=== PATIENT | male | born 1995 | race African-American/Black ===

== ENCOUNTER 2018-09-18 14:55 | Emergency (ER) | payer OTHER ==
[~2018-09-18] VITALS: Ht 165.1 cm; Wt 78.0 kg
--- OUTSIDE RECORDS SUMMARY | ~2018-09-18 | XMS | Encounter Summary ---
Demographics + + + | Address | [address] | | | [place] [address] | + + + | Home Phone | | + + + | Preferred Language | Unknown | + + + | Marital Status | Single | + + + | Mormonism Affiliation | NON | + + + | Race | White | + + + | Ethnic Group | Not or | + + + Author + + + | Organization | Unknown | + + + | Address | Unknown | + + + | Phone | Unavailable | + + + Support + + + + + | Name | Relationship | Address | Phone | + + + + + | Winter Pandya | ECON | [address] | | | | | [place] [address] | | + + + + + Care Team Providers + +------+ + | Care Warpman Name | Role | Phone | + +------+ + PCP | Unavailable | + +------+ + Encounter Details +--------+ + + + + | Date | Type | Department | Care Team | Description | +--------+ + + + + | 07/28/ | Transcribed | | Dictation, Other | Transcribed | | 1999 | | | | | +--------+ + + + + Social History + +-------+ +--------+------+ | Tobacco Use | Types | Packs/Day | Years | Date | | | | | Used | | + +-------+ +--------+------+ | Never Assessed | | | | | + +-------+ +--------+------+ + + + | Sex Assigned at | Date Recorded | | | | + + + | Not on file | | + + + + + + + | Job Start Date | Occupation | Industry | + + + + | Not on file | Not on file | Not on file | + + + + + + + + | Travel History | Travel Start | Travel End | + + + + + + | No recent travel history available. | + + documented as of this encounter Progress Notes Interface, Concierge Receptionist In - 04/18/2006 3:13 AM [facility] OR [facility] and [address] [address] or July 28, 1998 BRIANNE SAUCEDO MD [address] [place] [address] [place] [address] RE: AMOR PANDYA MR# [id number] Saucedo: Amor Pandya was seen in the Neurometabolic Clinic at [facility] on July 28, 1998. As you know, Amor is a lte-zryh-naa boy who is referred for evaluation of developmental delay, hypotonia, and microcephaly. In addition, he has a CT scan which reportedly shows scattered calcifications both periventricular and hemispheric. Review of his history discloses that he was the six-pound, 14-ounce product of a term delivered by forceps. There was a nuchal cord and he went home with mother in two to three days. It is notable that during the latter half of the , mother was around two cats in the household. She does state, however, that she did not clean the vianey litter boxes. For the first two months of life, there did not appear to be any problems. Amor did have some mild eczema. However, by [age] months of age, he was not sitting up and by 10 months of age when he had transferred into your practice, he was noted to be developmental delayed and microcephalic. In May of this year, a CT scan was obtained which was abnormal, showing intracranial calcifications suggesting an intrauterine infection versus tuberous sclerosis. Due to these concerns, he was referred here for further evaluation. While he has never been documented as having any significant seizure disorder, on two occasions he has been noted to "space out", however, without any dramatic motor activity. Developmentally, he is currently capable of sitting and reaching for objects. He does not transfer, crawl, or walk. Medically, other than mild gastroenteritis, he has been a healthy young man. Unfortunately, his CT brain scan did not reach our clinic for our review. Review of the dictation, however, was available. On physical examination, Amor is a well-developed, well-nourished young man in no acute distress. His growth parameters disclose a height of 71 cm with a weight of 8.2 kg and a head circumference of 41.8 cm. His systemic examination is unremarkable other than microcephaly. His skin is clear. I did not note any hypopigmented spots and specifically did not note any mohit-leaf spots when he was examined under a Wood lamp. On neurologic testing, his mental status reveals an awake, alert, inquisitive young man who did not babble and appeared somewhat more immature than his chronologic age. Cranial nerve testing revealed full visual nunn and pupils which are equal, round, and reactive to light. His visual tracking was inconsistent. Facial sensation and strength appeared normal. Hearing appeared intact with an acoustic blink. There was a notable head lag with neck flexor hypotonia. On motor examination, his bulk was normal, however, his tone disclosed proximal hypotonia, most notable in the upper extremities but also across the pelvic girdle. Strength testing appeared intact with appropriate movements against resistance and gravity. There were no abnormal movements noted. Reflexes were bilaterally symmetric and appropriate for age. Impression: Amor Pandya is a qxd-vbqp-wfc boy with a history of microcephaly, global developmental delay, hypotonia, and reported intracranial calcifications. 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 The most likely of the two is cytomegalovirus since that usually causes microcephaly while toxoplasmosis may cause hydrocephalus and macrocephaly. I do not believe he has tuberous sclerosis since there are no cutaneous stigmata for that and there is no significant history for seizures. In order to further pursue this diagnosis, today we are obtaining a urine for CMV culture and we would also like to have him evaluated by our Pediatric Ophthalmology service to examine him for any chorioretinitis to confer a congenital intrauterine infection. Given the two episodes of questionable seizure activity, I also believe it would be prudent to obtain an EEG. If the latter is normal, then I would not pursue any further neurodiagnostic studies until it became more obvious that he was actually having seizures. If we can locate the CT scan, I would be happy to review it and render an opinion. An attempt will be made to try to locate the scan which was probably just misdelivered [facility] to the university. The report, however, is highly suggestive of a congenital infection. Neither Dr. Pedraza nor I feels that there are any signs or symptoms referable to a metabolic disorder and therefore, no metabolic studies have been obtained. Thank you for allowing me to participate in the care of this young man and if I may be of any further assistance, please do not hesitate to call me. Sincerely, Kimani Lazaro M.D. Respiratory Therapy Director, Pediatrics Chief, Division of Pediatric Neurology TK/madeline C: 08/11/1998 ds A M PSTInterface, Concierge Receptionist In - 04/18/2006 3:13 AM PST [address] [address] or [facility] , , Mail Code CE July 29, 1996 Child Development and [facility] RE: Amor Pandya MR# [id number] To Whom It May Concern: Amor Pandya was referred to see us here at the [facility]. The patient is a 69-fteth-yrs boy with developmental delay. He apparently has calcific lesions in his brain, according to his mother. These are of an unknown etiology and he is currently undergoing a work-up at your center. The mother reports that the patient often has a "vacant" look on his face and seems to have a poor startle reflex with visual threats. He also has a wandering eye intermittently. On further questioning, the patient's eye has been noted to last turner occasionally, probably since , and seems to last turner less than 25% of the time. The patient's history is unremarkable. The developmental history is notable for a child who is not yet able to crawl or sit up on his own and who does not feed himself and gets most of his nourishment from milk in a bottle. His growth curves apparently are far behind normal. Mother thinks that he is at about the 5th percentile for height, weight and head circumference. The patient's past medical history is unremarkable other than for the developmental delay and the current work-up he is undergoing. He has no history of surgeries. He has no past ocular history to speak of. Medications include Amoxicillin for an ear infection currently. He has no known drug allergies. Family history does not reveal anything notable. On examination, the patient has vision that is apparently equal in both eyes, as he has central steady and maintained OU. His pupil exam is normal. There is no afferent pupillary defect. His extraocular movements appear to be full in both eyes. 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 His retinoscopic dilated refraction is +3.00 spherical in the right eye and +3.50 +0.50 axis 40 degrees in the left eye. His external exam is within normal limits. Dilated fundus exam shows no lesions of the optic nerve or posterior pull. The optic nerves are not edematous. IMPRESSION: This is a gvx-racn-oxn boy with developmental delay. His eye exam is notable for an intermittent large angle exotropia. There are no retinal lesions noted and no amblyopia suspected. He is reportedly undergoing a work-up for intracerebral calcifications. We have asked the mother to seek follow-up here or in [place] in approximately 3 months time to follow his exotropia and to check for amblyopia. If you have any questions, please do not hesitate to contact me. Thank you for referring this patient to see us. The patient was examined by Dr. Kate Obando, as well as myself. Again, thank you. Sincerely, Esau Gross M.D. Tdocumented in this encounter Plan of Treatment Not on filedocumented as of this encounter Visit Diagnoses Not on filedocumented in this encounter
--- OUTSIDE RECORDS SUMMARY | ~2018-09-18 | XMS | Encounter Summary ---
Demographics + + + | Address | [address] | | | [place] [address] | + + + | Home Phone | | + + + | Preferred Language | Unknown | + + + | Marital Status | Single | + + + | Adventism Affiliation | NON | + + + [...] | | | | | [place] [address] | | + + + + + Care Team Providers + +------+ + | Care Branch Associate Name | Role | Phone | + +------+ + PCP | Unavailable | + +------+ + Encounter Details +--------+ + + + + | Date | Type | Department | Care Team | Description | +--------+ + + + + | 10/05/ | Results | | Other, Faculty | | | 2000 | Only | | [phone] | | +--------+ + + + + [...] + + documented as of this encounter Plan of Treatment Not on filedocumented as of this encounter Procedures + +--------+ + + + | Procedure Name | Priori | Date/Time | Associated Diagnosis | Comments | | | ty | | | | + +--------+ + + + | MRI BRAIN WO/W | Urgent | 10/06/1999 | | Results for this | | [facility]AST [facility] | | 4:35 PM | | procedure are in the | | | | PDT | | results section. | + +--------+ + + + | PHENOBARBITAL, | Urgent | 10/06/1999 | | Results for this | | PLASMA | | 4:40 AM | | procedure are in the | | | | PDT | | results section. | + +--------+ + + + documented in this encounter Results MRI BRAIN WO/W CONTRAST [facility] (10/06/1999 4:35 PM PDT) + + + + + + | Component | Value | Ref Range | Performed | Pathologist | | | | | At | Signature | + + + + + + | MRI BRAIN | Radiologist 1: CARISSA, | | | | | WO/W | ESTEFANY LOTT, | | | | | CONTRAST [facility] | M.D.-Radiologist 2: | | | | | | ESTEFANY FERRER, | | | | | | M.D.BRAIN MAGNETIC | | | | | | [facility], WITH | | | | | | AND WITHOUT | | | | | | CONTRAST: 10/06/99 | | | | | | Dictated 10/07/99 | | | | | | CLINICAL | | | | | | HISTORY: [id number] | | | | | | patient being evaluated | | | | | | inNeuro-metabolic | | | | | | Clinic who has history | | | | | | of microcephaly, | | | | | | developmentaldelay, and | | | | | | hypotonia. By report, | | | | | | outside brain imaging | | | | | | study showsbrain | | | | | | calcifications. Exact | | | | | | results of TORCH titers | | | | | | performed at [facility]that an | | | | | | outside institution are | | | | | | not known. | | | | | | COMPARISON: No prior | | | | | | [facility] | | | | | | [place] | | | | | | Hospitalcomparison | | | | | | studies. | | | | | | TECHNIQUE: Non-contra | | | | | | st sagittal T1, axial | | | | | | and coronal | | | | | | protondensity/fast spin | | | | | | echo T2, and | | | | | | post-gadolinium | | | | | | (Omniscan 2 mL) [id number] | | | | | | and coronal pulse | | | | | | sequences were applied. | | | | | | In addition, axialFLAIR | | | | | | and axial gradient echo | | | | | | pulse sequences were | | | | | | included. | | | | | | FINDINGS: Supratentor | | | | | | ially, there is | | | | | | extensive confluent | | | | | | elevatedabnormal T2 | | | | | | signal in bilateral | | | | | | periventricular, deep, | | | | | | and subcorticalwhite | | | | | | matter (right side more | | | | | | than left), without | | | | | | evidence ofassociated | | | | | | volume loss. A similar | | | | | | patch of T2 | | | | | | hyperintensity is | | | | | | alsonoted at the deep | | | | | | white matter of the | | | | | | right cerebellar | | | | | | hemisphere,peripherally. | | | | | | There are two to three | | | | | | periventricular cystic | | | | | | lesions at the | | | | | | anterioraspects of both | | | | | | temporal lobes, as well | | | | | | as a single cystic | | | | | | lesionassociated with | | | | | | the posterior horn of | | | | | | the left lateral | | | | | | ventricle.There is no | | | | | | hydrocephalus or midline | | | | | | shift. No abnormal | | | | | | parenchymalenhancement | | | | | | is identified. A cavum | | | | | | septum pellucidum et | | | | | | vergae normalvariant is | | | | | | incidentally noted. | | | | | | IMPRESSION: | | | | | | 1. Extensive | | | | | | confluent white matter | | | | | | T2 signal | | | | | | abnormalitiesbilaterally | | | | | | . 2. Periventricular | | | | | | cysts at the anterior | | | | | | aspect of both | | | | | | temporallobes and also | | | | | | associated with the left | | | | | | lateral ventricle | | | | | | atrium. 3. These | | | | | | findings are not | | | | | | specific and most likely | | | | | | suggest ofcongenital | | | | | | inborn error of | | | | | | metabolism | | | | | | (leukodystrophy) | | | | | | and/orinfection (TORCH). | | | | | | Correlation with | | | | | | laboratory analysis is | | | | | | necessary. END OF | | | | | | IMPRESSION: | | | | + + + + + + + + | Specimen | + + | | + + + + + | Narrative | Performed At | + + + | Ordered by PARESH PENNY | | + + + + +---------+ + + | Performing | Address | City/State/Zipcode | Phone Number | | Organization | | | | + +---------+ + + | [facility] | | | | | RADIOLOGY | | | | + +---------+ + + PHENOBARBITAL (10/06/1999 4:40 AM PDT) + +-------+ + + + | Component | Value | Ref Range | Performed | Pathologist | | | | | At | Signature | + +-------+ + + + | PHENOBARBIT | 23.5 | 15.0 - 40.0 | [facility] | | | [place] | | ug/mL | DEPARTMENT | | | | | | OF | | | | | | PATHOLOGY | | + +-------+ + + + + + | Specimen | + + | | + + + + + | Narrative | Performed At | + + + | Ordered by PARESH PENNY | [facility] | | | DEPARTMENT OF | | | PATHOLOGY | + + + + + + + + | Performing | Address | City/State/Zipcode | Phone Number | | Organization | | | | + + + + + | [facility] | [address] | [place], [place] [address] | | | PATHOLOGY | [address] | | | + + + + + | [facility] | [address] | [place] [address] | | | PATHOLOGY | [address] | | | + + + + + documented in this encounter Visit Diagnoses Not on filedocumented in this encounter"
--- OUTSIDE RECORDS SUMMARY | ~2018-09-18 | XMS | Encounter Summary ---
Demographics + + + | Address | [address] | | | [place] [address] | + + + | Home Phone | | + + + | Preferred Language | Unknown | + + + | Marital Status | Single | + + + | Sikhism Affiliation | NON | + + + | Race | White | + + + | Ethnic Group | Not or | + + + Author + + + | Author | [facility] | + + + | Organization | [facility] | + + + | Address | Unknown | + + + | Phone | Unavailable | + + + Support + + + + + | Name | Relationship | Address | Phone | + + + + + | Winter Pandya | ECON | [address] | | | | | [place] [address] | | + + + + + Care Team Providers + +------+ + | Care Trademark Affixer Name | Role | Phone | + +------+ + PCP | Unavailable | + +------+ + Encounter Details +--------+ + + + + | Date | Type | Department | Care Team | Description | +--------+ + + + + | 06/26/ | Office | [facility] | Consult, Cdrc | Progress Note | | 2004 | Visit-Trans | | | | | | cribed | | | | +--------+ + + [...] as of this encounter Progress Notes Interface, Workday Senior Associate In - 11/21/2004 10:56 PM PDTClinic Date: 06/27/2003 CLINIC: [facility] CONNECTIONS DISCIPLINE: ORTHOPEDICS 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 Her left upper is her good hand. She has trouble standing; heel does not touch the ground with the braces, especially the right brace is coming out. She is unable to get her foot flat and she has a left-sided valgus position of the hindfoot. The static examination shows she has a right gastrocnemius of 10 degrees of plantarflexion with the knee extended; the left comes up to neutral. Bilateral hamstring contractures are right 60 and the left 70. She does have bilateral hip flexion contractures but this seems to be dynamic and when we stretch her out she comes out to neutral. We do not have a current hip x-ray so we do not know exactly what the status of her hips appear to be. Her upper extremities demonstrate right hand posturing with flexion and ulnar deviation. The overall plan would be to address the hamstring and right gastrocnemius with consideration for Botox. She would also be a candidate for Botox into the right FCU and pronator. At this point, she is going to be seen in the Botox clinic next week and Dr. Callahan will address these problems and then over time I believe she is going to become a candidate for bilateral hamstring and right gastrocnemius lengthening and possible subtalar stabilization. She is also seen for behavioral issues today. These concerns were discussed. The plan will be to have her seen in the Botox clinic and then will continue working with her speech/language behavior and activities at school. Garry Cannon M.D. MR:[id number] cc: Al Saucedo M.D. [address] [place] [address] Lary Farrell, Director [facility] [address] [place] [id number] signed by Interface, Workday Senior Associate In at 11/21/2004 10:56 PM PDTdocumented in this encounter Plan of Treatment Not on filedocumented as of this encounter Visit Diagnoses Not on filedocumented in this encounter"
--- OUTSIDE RECORDS SUMMARY | ~2018-09-18 | XMS | Encounter Summary ---
Demographics + + + | Address | [address] | | | [place] [address] | + + + | Home Phone | | + + + | Preferred Language | Unknown | + + + | Marital Status | Single | + + + | Episcopalian Affiliation | NON | + + + | Race | White | + + + | Ethnic Group | Not or | + + + Author + + + | Author | [facility] | + + + | Organization | [facility] | + + + | Address | Unknown | + + + | Phone | Unavailable | + + + Support + + + + + | Name | Relationship | Address | Phone | + + + + + | Winter Pandya | ECON | [address] | | | | | [place] [address] | | + + + + + Care Team Providers + +------+ + | Care Aesthetics Instructor Name | Role | Phone | + +------+ + PCP | Unavailable | + +------+ + Encounter Details +--------+ + + + + | Date | Type | Department | Care Team | Description | +--------+ + + + + | 06/01/ | Office | [facility] | Report, Outpatient | Progress Note | | 2001 | Visit-Trans | | Consultation | | | | cribed | | [...] as of this encounter Progress Notes Interface, Palletizer In - 01/07/2006 6:13 AM PDT CLINIC DATE: 06/01/2001 CLINIC NAME: [facility] DISCIPLINE: Social Work Stephanie is 5 years, 6 months of age, and he lives in [place] with his mother, Nadia Pandya. She is a single parent, and Stephanie is her only child. She does work, and she has much family support from grandparents, etc. 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 He has been enrolled in Early Intervention and is now in a preschool program. He receives PT and OT from the [facility]. He is making some nice progress. He also has had a seizure problem, and he is followed medically by Dr. Eunice Wilson, stringed instrument assembler. Eating had been a concern, but this seems to be improving. He is gaining weight appropriately. School attendance had also been a concern, but this year it has been better. We are pleased with the progress Stephanie is making. He seems very comfortable at the school, with the other children, his teacher and his therapists. We also feel he is in a supportive family environment. . JOEL Brody/jocelyne P 6: 13 AM PDTdocumented in this encounter Plan of Treatment Not on filedocumented as of this encounter Visit Diagnoses Not on filedocumented in this encounter"
--- OUTSIDE RECORDS SUMMARY | ~2018-09-18 | XMS | Encounter Summary ---
Demographics + + + | Address | [address] | | | [place] [address] | + + + | Home Phone | | + + + | Preferred Language | Unknown | + + + | Marital Status | Single | + + + | Scientology Affiliation | NON | + + + | Race | White | + + + | Ethnic Group | Not or | + + + Author + + + | Author | [facility] | + + + | Organization | [facility] | + + + | Address | Unknown | + + + | Phone | Unavailable | + + + Support + + + + + | Name | Relationship | Address | Phone | + + + + + | Winter Pandya | ECON | [address] | | | | | [place] [address] | | + + + + + Care Team Providers + +------+ + | Care Fiberline Supervisor Name | Role | Phone | + +------+ + PCP | Unavailable | + +------+ + Encounter Details +--------+ + + + + | Date | Type | Department | Care Team | Description | +--------+ + + + + | 07/28/ | Office | [facility] | Report, Outpatient | Progress Note | | 1998 | Visit-Trans | | Consultation | | [...] as of this encounter Progress Notes Interface, Pilot Plant Technician In - 04/18/2006 3:13 AM PSTCLINIC DATE: 07/28/1998 CLINIC NAME: [facility] DISCIPLINE: SOCIAL WORK Stephanie is just [age] year old. He was referred for this evaluation by Dr. Al Saucedo for concerns regarding significant hypotonia and calcifications on his brain. Stephanie came to this clinic in the company of his mother, Nadia; his maternal step-grandmother, Quin; and his maternal step-aunt, whose name I didn't get. These two women try to be a support system for Nadia. Unfortunately, the aunt lives in [place] and the grandmother lives in [place]. Stephanie and his mother live in [place]. Nadia is a single parent. She is not in contact with Stephanie's father, although she is requesting parental support, and is in the state system being evaluated. It seems that there will have to be a paternity evaluation in this case. Stephanie is Nadia' first child. She is working full-time at the [employer]. When she is at work, Stephanie is at a [employer]. Nadia is very pleased with this baby-sitter whom she describes as somebody with whom she can talk and with whom she can figure out what is going on with Stephanie's development. Nadia' mother lives in the same community but is less of a positive support for her than is the step-grandmother and the step-aunt. Stephanie gets his primary care from Dr. Al Saucedo. He is insured through his mother's work. Stephanie is involved in Early Intervention services. This includes home visitors from the [facility]), Sandra Walker and Perla Ovalle. They visit with Stephanie on either Tuesday or Tuesday when his mother is off of work. This has just started recently and so Nadia is a little unsure how this will work out. In addition, Nadia was expecting to take Stephanie to a toddler group but this has also been not quite established. She did take him one time but found it to be confusing. Stephanie is a cute little jovita. There seems to be some questions about his vision. 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 It seems that he does track at a distance but vision is a concern, both for the adults as well as for the [facility] staff. Additionally, Stephanie is very hypotonic. He is now learning to sit on his own at age 12 months but he is far from pulling to stand. This is his mother's primary concern and she does feel that aside from his gross motor skills, he is developing like any other child. He has had a computed tomography (CT) scan and this does show some calcifications on the brain. His mother was not clear about why he was coming to this particular nor what was the reason for either a neurologist or a program research specialist to be seeing him. Nadia seems to be a fairly simple person who is certainly functional and is taking care of this child but needs a lot of information regarding normal child development and how to manage Stephanie's special needs. Her step-aunt expressed distress at the way Stephanie has been managed. She feels that he was showing signs of developmental problems at about two months of age but that she had trouble convincing Nadia that there was any need for concern. In addition, Nadia has not been consistent in accessing medical care for Stephanie. He missed some of his regular baby checkups and so he is fairly old to be pursuing these questions at this time. Please see doctor's report regarding possible diagnosis for Stephanie. I am uncertain if they will be returning but if they are, we will certainly need to be sharing information regarding his diagnosis, not only with his family but also subsequently with community resources so that they can be supportive to this single mother. Yumiko Valencia L.C.S.W. Social Work DARLINE/keaton P STdocumented in this encounter Plan of Treatment Not on filedocumented as of this encounter Visit Diagnoses Not on filedocumented in this encounter"
--- OUTSIDE RECORDS SUMMARY | ~2018-09-18 | XMS | Encounter Summary ---
Demographics + + + | Address | [address] | | | [place] [address] | + + + | Home Phone | | + + + | Preferred Language | Unknown | + + + | Marital Status | Single | + + + | Uatsdin Affiliation | NON | + + + | Race | White | + + + | Ethnic Group | Not or | + + + Author + + + | Author | [facility] | + + + | Organization | [facility] | + + + | Address | Unknown | + + + | Phone | Unavailable | + + + Support + + + + + | Name | Relationship | Address | Phone | + + + + + | Winter Pandya | ECON | [address] | | | | | [place] [address] | | + + + + + Care Team Providers + +------+ + | Care Paper Making Machine Operator Name | Role | Phone | + +------+ + PCP | Unavailable | + +------+ + Encounter Details +--------+ + + + + | Date | Type | Department | Care Team | Description | +--------+ + + + + | 05/28/ | Office | [facility] | Report, Outpatient | Progress Note | | 1999 | Visit-Trans | | Consultation | | [...] as of this encounter Progress Notes Interface, Assistant Offset Press Operator In - 03/23/2006 3:02 AM PSTCLINIC DATE: 05/28/1999 CLINIC NAME: [facility] DISCIPLINE: SOCIAL WORK Stephanie was brought to the clinic today by his mother, Nadia Pandya, and also the paternal stepmother. Stephanie is 22 months old and the family live in [place], [place]. Mother is a single parent. Stephanie has been diagnosed with microcephaly, hypotonia, and developmental delay. 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 Stephanie has been followed by several programs [facility] the [facility] including the [facility], Pediatric Neurology, and the [facility]. His primary care physician in [place] is Dr. Al Saucedo. Stephanie is the only child born to this young mother. She says Stephanie has no contact with his father at this time. She works full-time at [employer] and works days. She has a childhood teacher provider when she is at work, and she does receive assistance from Social Security. She has an open medical card for Stephanie. She also receives a good deal of support from her father and stepmother, who live in [place], and also from her mother, who lives in [place]. Stephanie is receiving a full [facility] program [facility]. Services are given in the home, and he does not go to an outside toddler group as of yet, although this will soon be available to him. The mother feels quite positive about his current development, and she has the understanding that Stephanie does have cerebral palsy. She had many questions about this diagnosis, and Dr. Saucedo was able to spend some time with her today addressing this issue. It seems this mother is receiving services, both locally and through the [facility]. She also has good support systems in the community, and she has a high risk case manager also working with her on locating resources. We will continue to follow Stephanie in our clinic in [place]. Minerva Subramanian L.C.S.W. Photographic Processor [id number]/[id number] P STdocumented in this encounter Plan of Treatment Not on filedocumented as of this encounter Visit Diagnoses Not on filedocumented in this encounter"
--- OUTSIDE RECORDS SUMMARY | ~2018-09-18 | XMS | Encounter Summary ---
Demographics + + + | Address | [address] | | | [place] [address] | + + + | Home Phone | | + + + | Preferred Language | Unknown | + + + | Marital Status | Single | + + + | Bahai Affiliation | NON | + + + [...] | | | | | [place] [address] | | + + + + + Care Team Providers + +------+ + | Care Tactical Air Defense Controller Name | Role | Phone | + +------+ + PCP | Unavailable | + +------+ + Encounter Details +--------+ + + + + | Date | Type | Department | Care Team | Description | +--------+ + + + + | 10/24/ | Transcribed | | Dictation, Other | [...] as of this encounter Progress Notes Interface, Pulverizing And Sifting Operator In - 04/10/2006 5:[address] [facility] [place] [address] [place], [place] [address] or October 24, 1998 ROXY KNOWLES MD PEDIATRIC NEUROLOGY [address] [place] [address] [place] [address] RE: Stephanie Pandya MR#: [id number] Knowles: You probably remember we saw Stephanie Pandya in the [facility] recently. Stephanie had brain calcifications, microcephaly, developmental delays, and hypotonia. We thought she might have had congenital cytomegalovirus. Her ophthalmologic examination, however, was completely normal, and her urine cytomegalovirus test was normal. I do not think she is likely to have a metabolic disease. You had apparently suggested repeating torch titers. This is a bit outside my area of expertise. Would you or your office be able to contact Dr. Saucedo to either try to obtain results of any torch testing that was done around the time of and/or to suggest specific testing that might be done at this point? Stephanie is now about 15 months old. Finally, you might ask Dr. Saucedo if you could review the head imaging studies that have been done. If, on further review and/or repeat testing, you still do not find evidence of a congenital infection, then perhaps you and I could see Stephanie back in the [facility] to think about other conditions, such as Aicardi Gouttiere syndrome or Fahr disease or lysosomal storage diseases. 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 Thank you for your help with this. Sincerely, Fahad Pedraza M.D. RDS:x12 cc: BRIANNE SAUCEDO MD [address] [place] [address] 3991 BRIANNE SAUCEDO MD [address] [place] [address] 3991 [id number] signed by Interface, Pulverizing And Sifting Operator In at 04/10/2006 5:04 AM PSTdocume nted in this encounter Plan of Treatment Not on filedocumented as of this encounter Visit Diagnoses Not on filedocumented in this encounter"
--- OUTSIDE RECORDS SUMMARY | ~2018-09-18 | XMS | Encounter Summary ---
Demographics + + + | Address | [address] | | | [place] [address] | + + + | Home Phone | | + + + | Preferred Language | Unknown | + + + | Marital Status | Single | + + + | Latter-Day Affiliation | NON | + + + | Race | White | + + + | Ethnic Group | Not or | + + + Author + + + | Author | [facility] | + + + | Organization | [facility] | + + + | Address | Unknown | + + + | Phone | Unavailable | + + + Support + + + + + | Name | Relationship | Address | Phone | + + + + + | Winter Pandya | ECON | [address] | | | | | [place] [address] | | + + + + + Care Team Providers + +------+ + | Care Mill Roll Operator Name | Role | Phone | + +------+ + PCP | Unavailable | + +------+ + Encounter Details +--------+ + + + + | Date | Type | Department | Care Team | Description | +--------+ + + + + | 10/04/ | Procedure - | UNKNOWN DEPARTMENT | Other, Faculty | EEG | | 1999 | | [address] [facility] | [phone] | | | | Transcribed | [facility] | | | | | | [place], [place] | | | | | | [address] | | | +--------+ + + + [...] documented as of this encounter Progress Notes Other, Faculty - 10/05/1999 12:00 AM PDTAssociated Order(s): EEG ROUTINE CLINIC DATE: 10/04 Care Unit: [facility] [id number] Req by: Lance Ingram Test Type: [facility] ROUTINE EEG-[facility] EEG Number: [id number] Pertinent Medications: PHENOBARBITAL, CEFOTAXIME, FENTANYL, TYLENOL INTERPRETATION: Detail: The EEG is recorded primarily with the patient asleep. The background contains some moderate amplitude theta activity that is greater in amplitude over the right hemisphere and much rhythmic beta activity that is most prominent anteriorly and greater in amplitude over the left. There are symmetric sleep spindles and vertex waves. During brief periods of wakefulness there was mostly continuous, low amplitude rhythmic beta activity slightly greater in amplitude over the left anterior electrodes compared with the right. There was no abnormal paroxysmal activity. Impression: Mildly abnormal pediatric EEG with the patient asleep and briefly awake because of mild slowing over the right fronto-temporal region with relative attenuation of beta activity in the same distribution. There were no epileptiform discharges. A prior EEG of 07/29/98 was a normal awake study. Aneudy Davila M.D. documented in this encou nter Plan of Treatment Not on filedocumented as of this encounter Procedures + +--------+ + + + | Procedure Name | Priori | Date/Time | Associated Diagnosis | Comments | | | ty | | | | + +--------+ + + + | EEG ROUTINE | | 10/05/1999 | | Results for this | | | | 12:00 AM | | procedure are in the | | | | PDT | | results section. | + +--------+ + + + documented in this encounter Results EEG ROUTINE (10/05/1999 12:00 AM PDT) + + | Procedure Note | + + | Other, Faculty - 10/05/1999 12:00 AM PDT CLINIC DATE: 10/05/1999 | | | | Care Unit: 8[facility] [id number] Req by: Lance Ignram | | Test Type: PEDS PORT ROUTINE EEG-[facility] EEG Number: [id number] | | Pertinent Medications: PHENOBARBITAL, CEFOTAXIME, FENTANYL, TYLENOL | | | | | | INTERPRETATION: | | | | Detail: The EEG is recorded primarily with the patient asleep. The | | background contains some moderate amplitude theta activity that is greater | | in amplitude over the right hemisphere and much rhythmic beta activity that | | is most prominent anteriorly and greater in amplitude over the left. There | | are symmetric sleep spindles and vertex waves. During brief periods of | | wakefulness there was mostly continuous, low amplitude rhythmic beta | | activity slightly greater in amplitude over the left anterior electrodes | | compared with the right. There was no abnormal paroxysmal activity. | | | | Impression: Mildly abnormal pediatric EEG with the patient asleep and | | briefly awake because of mild slowing over the right fronto-temporal region | | with relative attenuation of beta activity in the same distribution. There | | were no epileptiform discharges. A prior EEG of 07/29/98 was a normal awake | | study. | | | | | | | | | | Aneudy Davila M.D. | | | | | | | | | + + documented in this encounter Visit Diagnoses Not on filedocumented in this encounter"
--- OUTSIDE RECORDS SUMMARY | ~2018-09-18 | XMS | Encounter Summary ---
Demographics + + + | Address | [address] | | | [place] [address] | + + + | Home Phone | | + + + | Preferred Language | Unknown | + + + | Marital Status | Single | + + + | Religion Affiliation | NON | + + + | Race | White | + + + | Ethnic Group | Not or | + + + Author + + + | Author | [facility] | + + + | Organization | [facility] | + + + | Address | Unknown | + + + | Phone | Unavailable | + + + Support + + + + + | Name | Relationship | Address | Phone | + + + + + | Winter Pandya | ECON | [address] | | | | | [place] [address] | | + + + + + Care Team Providers + +------+ + | Care Spanish Lecturer Name | Role | Phone | + +------+ + PCP | Unavailable | + +------+ + Encounter Details +--------+ + + + + | Date | Type | Department | Care Team | Description | +--------+ + + + + | 07/29/ | Procedure - | UNKNOWN DEPARTMENT | Other, Faculty | EEG | | 1998 | | [address] [facility] | [phone] | | | | Transcribed | [facility] | | | | | | [place], [place] | | | | | | [address] | | | +--------+ + + + [...] this encounter Progress Notes Other, Faculty - 07/29/1998 12:00 AM PDTAssociated Order(s): EEG ROUTINE CLINIC DATE: 07/29 [facility]: Dr. Pedraza Test Type: Routine EEG - Peds EEG Number: [id number] Pertinent Medications: Amoxicillin INTERPRETATION: Detail: With the patient awake, there was some intermittent posterior moderate amplitude, symmetric 4-5 Hz activity. Anteriorly there is also mostly moderate to high amplitude symmetric 4-6 Hz activity with some intermixed low amplitude beta activity. Photic stimulation produced a symmetric driving response. There was no focal abnormality or abnormal paroxysmal activity. Impression: Normal pediatric EEG with the patient awake. Aneudy Davila M.D. documented in this encou nter Plan of Treatment Not on filedocumented as of this encounter Procedures + +--------+ + + + | Procedure Name | Priori | Date/Time | Associated Diagnosis | Comments | | | ty | | | | + +--------+ + + + | EEG ROUTINE | | 07/29/1998 | | Results for this | | | | 12:00 AM | | procedure are in the | | | | PDT | | results section. | + +--------+ + + + documented in this encounter Results EEG ROUTINE (07/29/1998 12:00 AM PDT) + + | Procedure Note | + + | Other, Faculty - 07/29/1998 12:00 AM PDT CLINIC DATE: 07/29/1998 | | | | Care Unit: [facility] Req by: Dr. Pedraza | | Test Type: Routine EEG - Peds EEG Number: [id number] | | Pertinent Medications: Amoxicillin | | | | | | INTERPRETATION: | | | | | | | | Detail: With the patient awake, there was some intermittent posterior | | moderate amplitude, symmetric 4-5 Hz activity. Anteriorly there is also | | mostly moderate to high amplitude symmetric 4-6 Hz activity with some | | intermixed low amplitude beta activity. Photic stimulation produced a | | symmetric driving response. There was no focal abnormality or abnormal | | paroxysmal activity. | | | | Impression: Normal pediatric EEG with the patient awake. | | | | | | | | | | Aneudy Davila M.D. | | | | | | | | | + + documented in this encounter Visit Diagnoses Not on filedocumented in this encounter"
--- OUTSIDE RECORDS SUMMARY | ~2018-09-18 | XMS | Encounter Summary ---
Demographics + + + | Address | [address] | | | [place] [address] | + + + | Home Phone | | + + + | Preferred Language | Unknown | + + + | Marital Status | Single | + + + | Mu-Ism Affiliation | NON | + + + | Race | White | + + + | Ethnic Group | Not or | + + + Author + + + | Author | [facility] | + + + | Organization | [facility] | + + + | Address | Unknown | + + + | Phone | Unavailable | + + + Support + + + + + | Name | Relationship | Address | Phone | + + + + + | Winter Pandya | ECON | [address] | | | | | [place] [address] | | + + + + + Care Team Providers + +------+ + | Care Fire Captain Name | Role | Phone | + +------+ + PCP | Unavailable | + +------+ + Encounter Details +--------+ + + + + | Date | Type | Department | Care Team | Description | +--------+ + + + + | 01/01/ | Office | [facility] | Consult, [...] as of this encounter Progress Notes Interface, Manager Storage In - 11/22/2004 8:00 AM PDT [id number] 01/02/2004 [id number] [facility] Clinic Date: 01/02/2004 Clinic Name [facility] Stephanie Pandya is a 8-year 5-month-old with 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 She is walking with a walker. She has had previous Botox. Mother has been concerned about toe walking. She is status post bilateral hamstring, bilateral gastrocnemius, left valgus correction of the foot, which we did this summer. The wounds are clean and dry. There is no sign of infection. There is very good position. In three weeks I would like to obtain and x-ray and have those sent to [place]. We will go ahead and start some physical therapy. I would like to see her back in this clinic in March. Garry Cannon M.D. [id number] documented i n this encounter Plan of Treatment Not on filedocumented as of this encounter Visit Diagnoses Not on filedocumented in this encounter"
--- OUTSIDE RECORDS SUMMARY | ~2018-09-18 | XMS | Encounter Summary ---
Demographics + + + | Address | [address] | | | [place] [address] | + + + | Home Phone | | + + + | Preferred Language | Unknown | + + + | Marital Status | Single | + + + | Holiness Affiliation | NON | + + + [...] | | | | | [place] [address] | | + + + + + Care Team Providers + +------+ + | Care Harp Regulator Name | Role | Phone | + +------+ + PCP | Unavailable | + +------+ + Encounter Details +--------+ + + + + | Date | Type | Department | Care Team | Description | +--------+ + + + + | 10/03/ | Results | | [place] | | | 2000 | Only | | | | +--------+ + + [...] + + | PHENOBARBITAL, | Urgent | 10/05/1999 | | Results for this | | PLASMA | | 4:00 AM | | procedure are in the | | | | PDT | | results section. | + +--------+ + + + | CHEST, 1 VIEW, | Urgent | 10/04/1999 | | Results for this | | PORTABLE | | 11:30 PM | | procedure are in the | | | | PDT | | results section. | + +--------+ + + + documented in this encounter Results PHENOBARBITAL (10/05/1999 4:00 AM PDT) + +-------+ + + + | Component | Value | Ref Range | Performed | Pathologist | | | | | At | Signature | + +-------+ + + + | PHENOBARBIT | 23.7 | 15.0 - 40.0 | [facility] | [...] DEPARTMENT OF | [address] | [place] [address] | | | PATHOLOGY | [address] | | | + + + + + | [facility] | [address] [facility] | [place] [address] | | | PATHOLOGY | [address] | | | + + + + + CHEST, 1 VIEW, PORTABLE (10/04/1999 11:30 PM PDT) + + + + + + | Component | Value | Ref Range | Performed | Pathologist | | | | | At | Signature | + + + + + + | CHEST, 1 | Radiologist 1: TAMI | | | | | SAUL, | MED | | | | | PORTABLE | M.D.CHEST: 10/04/1999 | | | | | | Dictated 10/05/1999 | | | | | | COMPARISON: None. | | | | | | FINDINGS: AP chest | | | | | | radiograph | | | | | | submitted. Endotrache | | | | | | al tube tip isabove the | | | | | | thoracic | | | | | | inlet. Nasogastric | | | | | | tube is coiled in the | | | | | | stomach.The lungs are | | | | | | clear. There is no | | | | | | pneumothorax. Heart | | | | | | size is normal. | | | | | | IMPRESSION: | | | | | | 1. Endotracheal tube | | | | | | tip above the thoracic | | | | | | inlet. Nasogastric | | | | | | tubetip in the stomach. | | | | | | 2. Clear lungs. END | | | | | | OF IMPRESSION: | | | | + + + + + + + + | Specimen | + + | | + + + +---------+ + + | Performing | Address | City/State/Zipcode | Phone Number | | Organization | | | | + +---------+ + + | [facility] DEPARTMENT OF | | | | | RADIOLOGY | | | | + +---------+ + + documented in this encounter Visit Diagnoses Not on filedocumented in this encounter"
--- OUTSIDE RECORDS SUMMARY | ~2018-09-18 | XMS | Encounter Summary ---
Demographics + + + | Address | [address] | | | [place] [address] | + + + | Home Phone | | + + + | Preferred Language | Unknown | + + + | Marital Status | Single | + + + | Orthodoxy Affiliation | NON | + + + | Race | White | + + + | Ethnic Group | Not or | + + + Author + + + | Author | [facility] | + + + | Organization | [facility] | + + + | Address | Unknown | + + + | Phone | Unavailable | + + + Support + + + + + | Name | Relationship | Address | Phone | + + + + + | Winter Pandya | ECON | [address] | | | | | [place] [address] | | + + + + + Care Team Providers + +------+ + | Care Hvac Maintenance Technician Name | Role | Phone | + +------+ + PCP | Unavailable | + +------+ + Encounter Details +--------+ + + + + | Date | Type | Department | Care Team | Description | +--------+ + + + + | 03/14/ | Office | [facility] | Note, Outpatient | Progress Note | | 2000 | Visit-Trans | MEDICINE | Clinic | | | | cribed | | [...] as of this encounter Progress Notes Interface, Wash Oil Cooler Operator In - 01/04/2006 3:01 AM PDTCLINIC DATE: 03/14/2001 OTOLARYNGOLOGY CLINIC HISTORY OF PRESENT ILLNESS: The patient is a 60-year-old gentleman who is referred for evaluation of 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 The patient initially presented in September of 1999 for his left neck mass. Open biopsy of the neck mass was performed by and it was consistent with squamous cell carcinoma. The patient then underwent further evaluation and tonsillectomy and the primary site at left tonsil was found. The patient was treated with concurrent chemotherapy and radiation which he finished in October 1999. He has been doing well with no evidence of recurrence. The patient moved to [place] within the past couple of weeks. Prior to his move, a routine surveillance CT scan of the neck was obtained which was suspicious for a left neck recurrence. The patient thinks that he can feel a new mass in the left side of his neck which is nontender. He denies any dysphagia, odynophagia, or sore throat. He denies weight loss. He does not smoke and never smoked in the past. He drinks 1 to 2 alcohol drinks a day. Of note, the patient was seen by Dr.Eugene Monge at the [facility] at the time of his initial evaluation as well as at the time of evaluation after he completed his chemotherapy and radiation. Once he completed chemotherapy and radiation, there was no residual disease in the neck; therefore, the patient did not undergo neck dissection at that time. PAST MEDICAL HISTORY: Recurrent sinusitis. PAST SURGICAL HISTORY: Neck biopsy and tonsillectomy in July 1999. Ruptured Achilles tendon in June 1970. Broken jaw in October 1963. MEDICATIONS: Toprol 50 mg a day which he takes for "irregular heart beats," and aspirin 81 mg a day. ALLERGIES: IODINE DYE AND POLLEN. SOCIAL HISTORY: The patient does not smoke. He drinks 1 to 2 alcohol drinks a week. He recently moved to [place] with his . 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 They have 2 grown kids, both of them live in [place]. REVIEW OF SYSTEMS: Review of system is done using the questionnaire and it is essentially negative except for xerostomia. FAMILY HISTORY: Positive for history of lung cancer in the mother and adenosarcoma in the patient's father. PHYSICAL EXAMINATION: GENERAL: The patient is a pleasant gentleman in no acute distress, no respiratory distress. VITAL SIGNS: Weight 166 pounds, blood pressure 124/82, and pulse 60. HEENT: Ears: External canals are occluded by cerumen which is removed. Tympanic membranes are clear bilaterally. Nasal exam shows normal septum, mucosa, and turbinates bilaterally. Oral cavity and oropharynx exam shows postsurgical changes after tonsillectomy. There is no evidence of recurrence. There are no lesions on his mucosa. The tongue and uvula are midline. Tongue mobility and sensation are not impaired. NECK: A well-healed incision in the left side of the neck. There is a poorly defined firm mass on the left side of the neck between the great vessels and the larynx. It is firm and nontender. 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 We do not have the access to his scan today which was suspicious for recurrence. We will plan to obtain them from Dr. Smith's office and from the [facility] and hope we will be able to obtain the initial scans as well as the most recent scans, and we will plan to evaluate them with our head and neck radiologist, Dr. Pat Cortes. If it is indeed suspicious for recurrence, we will plan to proceed with either a PET scan or fine-needle biopsy of this neck mass, and if the tissue diagnosis is confirmed, he will need eventual neck dissection. The patient was seen and examined with Dr. Hernandez. Marilee Madrigal M.D. Chu Hernandez M.D. SSD / HS [id number] / [id number] / [id number] / [id number] C: 07/06/2001 cc: Dougie Smith M.D. [address] [place] [address] #LL-C YANA [place] [id number] signed by Interface, Wash Oil Cooler Operator In at 01/04/2006 3:01 AM PDTdoc umented in this encounter Plan of Treatment Not on filedocumented as of this encounter Visit Diagnoses Not on filedocumented in this encounter
--- OUTSIDE RECORDS SUMMARY | ~2018-09-18 | XMS | Clinical Summary ---
Demographics + + + | Address | [address] | | | [place] [address] | + + + | Home Phone | | + + + | Preferred Language | Unknown | + + + | Marital Status | Single | + + + | Mormon Affiliation | NON | + + + | Race | White | + + + | Ethnic Group | Not or | + + + Author + + + | Author | [facility] | + + + | Organization | [facility] | + + + | Address | Unknown | + + + | Phone | Unavailable | + + + Support + + + + + | Name | Relationship | Address | Phone | + + + + + | Winter Pandya | ECON | [address] | | | | | [place] [address] | | + + + + + Care Team Providers + +------+ + | Care Biological Aide Name | Role | Phone | + +------+ + PP | Unavailable | + +------+ + Source Comments MEGHA is fully live on both [facility] and [facility] Allergies Not on File Medications Not on file Active Problems Not on file Social History + +-------+ +--------+------+ | Tobacco [...] recent travel history available. | + + Plan of Treatment + + + + + | Health Maintenance | Due Date | Last Done | Comments | + + + + + | Influenza (Flu) | | | | | vaccination (Season | 9 | | | | Ended) | | | | + + + + + Results Not on filefrom Last 3 Months"
--- OUTSIDE RECORDS SUMMARY | ~2018-09-18 | XMS | Encounter Summary ---
Demographics + + + | Address | [address] | | | [place] [address] | + + + | Home Phone | | + + + | Preferred Language | Unknown | + + + | Marital Status | Single | + + + | Amish Affiliation | NON | + + + | Race | White | + + + | Ethnic Group | Not or | + + + Author + + + | Author | [facility] | + + + | Organization | [facility] | + + + | Address | Unknown | + + + | Phone | Unavailable | + + + Support + + + + + | Name | Relationship | Address | Phone | + + + + + | Winter Pandya | ECON | [address] | | | | | [place] [address] | | + + + + + Care Team Providers + +------+ + | Care Diesel Engine Fitter Name | Role | Phone | + [...] as of this encounter Progress Notes Interface, Wiping Cloth Cutter In - 11/22/2004 8:00 AM PDT [id number] 01/02/2004 [id number] CHEVY CHINCHILLA Clinic Date: 01/02/2004 Clinic Name [facility] Stephanie Pandya is a 8-year 5-month-old [...] in March. Garry Cannon M.D. [id number] documented i n this encounter Plan of Treatment Not on filedocumented as of this encounter Visit Diagnoses Not on filedocumented in this encounter"
--- OUTSIDE RECORDS SUMMARY | ~2018-09-18 | XMS | Encounter Summary ---
Demographics + + + | Address | [address] | | | [place] [address] | + + + | Home Phone | | + + + | Preferred Language | Unknown | + + + | Marital Status | Single | + + + | Methodist Affiliation | NON | + + + [...] | | | | | [place] [address] | | + + + + + Care Team Providers + +------+ + | Care Resident Care Technician Name | Role | Phone | + +------+ + PCP | Unavailable | + +------+ + Encounter Details +--------+ + + + + | Date | Type | Department | Care Team | Description | +--------+ + + + + | 02/19/ | [facility] | | Letter, Clinic | Letters | | 2004 | scribed | | | | +--------+ + + [...] as of this encounter Progress Notes Interface, Scoring Machine Operator In - 11/22/2004 9:03 AM PDT [id number] 02/20/2004 02/20/2004 [id number] CHEVY CHINCHILLA [facility] [address] [place] [address] or February 24, 2004 Елена Najera M.D. [address] [place] [address] RE: AMOR PANDYA MR #: [id number] Dear Dr. Najera: Amor Pandya was seen for neurologic evaluation in the Pediatric Neurology Clinic at [facility] on February 20, 2004. As you know, Amor is a 6-1/2-year-old boy with a history of microcephaly with cerebral calcification, spastic quadriplegia, psychomotor retardation, and a history of 3 seizures. His previous evaluation has included a CT brain scan obtained in May 2001, which disclosed multiple periventricular calcification, felt to be compatible with an intrauterine infection. While these findings were related to mother, it is not clear that she truly understands the nature and causality. As a result of an apparent intrauterine infection, Amor has been developmentally delayed with microcephaly and now has had 3 seizures. The first occurred at the age of 4 which resulted in hospitalization and evaluation reportedly here at [facility]. A second seizure occurred at age 6 during a febrile illness. This episode lasted 5 to 10 minutes and was notable for the eyes rolling upward with tonic stiffening and convulsive activity, right greater than left. After both his first seizure and his second seizure, he was transiently treated with phenobarbital for approximately 1 year. Due to no further seizures, he was taken off the medication. He has recently had a third seizure which was on November 29, 2003, and again, similarly described to the one 2 years ago. His most recent event appeared to have lasted 10 to 15 minutes. He was not started on any medications, although an EEG was obtained locally. He had an EEG here in 1998 which was felt to be within normal limits and then a repeat EEG in 1999 which was mildly abnormal due to some slowing, but no epileptiform discharges were seen. He now presents for further evaluation of his seizures. Review of the past medical history discloses that he was delivered by forceps near term. The details of his and specifically his head circumference at are not available. As noted above, he has always had a developmental disability, and when reviewing his development milestones, he sat at 12 months, crawled at 4 years, and even at the present time, has only 20 to 40 words. He currently is in a special school setting at the first-grade level. Due to his spastic cerebral palsy, he has had multiple tendon releases in his lower extremities as well as strabismus surgery at age 5. He has also received Botox for his spasticity. Review of the family history discloses that there is no history of cerebral palsy, mental retardation, or seizure disorder. He lives with his mother and as noted above, attends special education at the first-grade level. Review of systems is notable for the fact that he is left handed. Mother states that his worst side is his right side. On physical examination, Amor is a disabled-appearing, 6-1/2-year-old boy in no acute distress. His growth parameters disclose a weight of 18.1 kg and a head circumference of 47.5 cm. He was afebrile with normal heart rate and respiratory rate. The systemic examination discloses a microcephalic young man who is wheel-chair bound. He has obvious psychomotor retardation. The systemic examination is notable for findings of cerebral palsy, worse on the right than on the left. He has tight heel cord and arm extension. Mental status examination reveals an awake, alert, and cognitively-impaired young man. Cranial nerve testing discloses strabismus but pupils which are equal, round, and reactive. Face is symmetric, although there is tendency for the mouth to be help opened. Motor examination reveals normal bulk throughout. The tone is diffusely increased, but greater on the right than on the left. There is both spastic tone as well as some dystonic tone. His volitional movements are better on the left. Sensory testing is grossly intact. Cerebellar testing is impaired due to his increased motor tone. Reflexes are brisk but greater on the right than left. Toes are extensive bilaterally. He is nonambulatory. Amor Pandya is a 6-1/2-year-old boy with a history of microcephaly; psychomotor retardation; spastic quadriplegia, greater on the right than the left; and 3 seizures, two of which occurred in the setting of fever, the last of which occurred in an afebrile state. 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 When I discussed this with mother, she did remember someone talking to her about the possibility that she may have come in contact with some infection in cats when she was . 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 I did take the liberty of prescribing the Diastat 5 mg to be used in case of another seizure lasting more than 3 to 5 minutes. If the pattern is for him to have increased numbers of seizures, then I would consider placing him back on daily medication with either phenobarbital or valproic acid. He is at greater risk of having a seizure during febrile illnesses. I discussed this with the mother as well as the pros and cons of daily treatment. It was decided that we would continue to observe him clinically and treat only acute seizures with Diastat. In terms of neurologic followup, I would be happy to have him return for routine care in approximately 6 months to 1 year. If there is a change in his seizure pattern or frequency, I would be happy to reevaluate him sooner. Thanks for allowing to participate in his care, and if I may be of any further assistance, please do not hesitate to contact me. Sincerely, Kimani Lazaro M.D. Chief, Division of Pediatric Neurology Professor, Pediatrics and Neurology SHANDRA / JAMEL [id number] / [id number] / [id number] / documented i n this encounter Plan of Treatment Not on filedocumented as of this encounter Visit Diagnoses Not on filedocumented in this encounter"
--- OUTSIDE RECORDS SUMMARY | ~2018-09-18 | XMS | Encounter Summary ---
Demographics + + + | Address | [address] | | | [place] [address] | + + + | Home Phone | | + + + | Preferred Language | Unknown | + + + | Marital Status | Single | + + + | Anabaptist Affiliation | NON | + + + | Race | White | + + + | Ethnic Group | Not or | + + + Author + + + | Author | [facility] | + + + | Organization | [facility] | + + + | Address | Unknown | + + + | Phone | Unavailable | + + + Support + + + + + | Name | Relationship | Address | Phone | + + + + + | Winter Pandya | ECON | [address] | | | | | [place] [address] | | + + + + + Care Team Providers + +------+ + | Care Railway Equipment Operator Name | Role | Phone | + +------+ + PCP | Unavailable | + +------+ + Encounter Details +--------+ + + + + | Date | Type | Department | Care Team | Description | +--------+ + + + + | 10/04/ | Procedure - | UNKNOWN DEPARTMENT | Other, Faculty | EEG | | 1999 | | [address] | [phone] | | | | Transcribed | [facility] | | | | | | [place], [place] | | | | | | [address] | | | +--------+ + + + [...] EEG ROUTINE CLINIC DATE: 10/04 Care Unit: 8[facility] [id number] Req by: Lance Ingram Test Type: [facility] ROUTINE EEG-[facility] EEG Number: [id number] Pertinent Medications: PHENOBARBITAL, [...] | | | | Care Unit: [id number] Req by: Lance Ingram | | Test Type: PEDS PORT ROUTINE EEG-[facility] EEG Number: [id number] | | Pertinent [...]
--- OUTSIDE RECORDS SUMMARY | ~2018-09-18 | XMS | Encounter Summary ---
Demographics + + + | Address | [address] | | | [place] [address] | + + + | Home Phone | | + + + | Preferred Language | Unknown | + + + | Marital Status | Single | + + + | Protestant Affiliation | NON | + + + | Race | White | + + + | Ethnic Group | Not or | + + + Author + + + | Author | [facility] | + + + | Organization | [facility] | + + + | Address | Unknown | + + + | Phone | Unavailable | + + + Support + + + + + | Name | Relationship | Address | Phone | + + + + + | Winter Pandya | ECON | [address] | | | | | [place] [address] | | + + + + + Care Team Providers + +------+ + | Care Die Forger Name | Role | Phone | + +------+ + PCP | Unavailable | + +------+ + Encounter Details +--------+ + + + + | Date | Type | Department | Care Team | Description | +--------+ + + + + | 07/28/ | Office | [facility] | Note, Outpatient | Progress Note | | 1998 | Visit-Trans | MEDICINE | Clinic | [...] as of this encounter Progress Notes Interface, Magazine Publisher In - 04/18/2006 3:13 AM PSTCLINIC DATE: 07/28/1998 [facility] HISTORY OF PRESENT ILLNESS: This is a 3-year-old child referred by Dr. Brianne Saucedo in [place], [place] for concerns of hypotonia, developmental delay, and a recent CT scan revealing diffuse calcification. Stephanie's mother received care starting at five months in [place]. She reports having a chlamydial infection treated during , as well as a rubella non-immune status. She denies any significant fevers or infections, although she did have a low-grade fever the week prior to Stephanie's delivery. He was born at 40 weeks by last menstrual period, 34 weeks by sonogram. He was a forceps delivery with nuchal cord x one. There was no remarkable resuscitation. His weight was 6 lb. 14 oz., and he was discharged on bottle feeding of Enfamil at 3 days of life. He was circumcised at 1 week of age without complication, prior to moving to [place]. The mother does relate having several indoor kittens during the last three months of , but the litter was changed by a roommate. Stephanie had his normal 2-month well-child check which was remarkable for mild eczema. He received vaccinations. There were no developmental concerns expressed. At 4 months of age he was again seen for well-child check with no developmental concerns noted. He apparently gained weight, although these previous points are not available to us. He had no formal well-child check between 4 months and 9 months, but his mother reports family concerns about his development in that he was not sitting up at 6 months and did not start rolling until 8 months of age. At his 9-month well-child check he was noted to be unable to sit unassisted. He had microcephaly. He was noted to be able to hold his rattle. There were no maternal concerns for vision or hearing. At home his mother describes prominent startle response but has noticed no overt repetitive movements. On at least two occasions both the visiting nurse and other family members have noted that he will stare unresponsively for about 40 seconds at a time. REVIEW OF SYSTEMS: Notable for recent recovery from a presumed viral gastroenteritis. He is formula fed without difficulty. He has not advanced to solid diet. There has been no choking or regurgitation noted. He has one to two bowel movements per day. He is noted to have a soft cry. He has had no other major medical illnesses. MEDICATIONS: He is not currently on any medications. FAMILY HISTORY: Significant for two maternal great-uncles with mental retardation, maternal grandmother with bipolar disorder. There have been no miscarriages nor ship fastener demise. The father's history is unknown. SOCIAL HISTORY: Stephanie lives with his mother. The father of the child is not involved. IMMUNIZATIONS: Current. He has never received oral polio vaccine. He needs his 12-month vaccine. PHYSICAL EXAMINATION: Vital signs: Weight 8.2 kg (less than 5th percentile). Length 71 cm (less than 5th percentile). Head circumference 41.8 cm (much less than the 5th percentile). Weight for length is at the 80th percentile. Generally he is a quiet baby in no distress. He is sitting with assistance in his mother's arms and occasionally has a spontaneous social smile. He is microcephalic by measurement but does not appear small in relationship to the rest of his body. Atraumatic. Non-dysmorphic. Pupils are equal and reactive. He is well-hydrated. There is no obvious funduscopic abnormality. Tympanic membranes are clear with a small amount of fluid bilaterally. Nares are clear without discharge. Oropharynx is moist and pink without lesion. Neck is supple without adenopathy. Cardiovascular: Regular rate without murmur or gallop. Lungs are clear with easy respiratory effort. Abdomen is soft, nontender, nondistended. There is no hepatosplenomegaly or mass. Extremities are warm and well-perfused. Dermatologically there are very small areas of depigmentation along his left lateral thorax. These do not light up with Wood lamp and are not deemed to be significant of genetic disease. Neurologic exam: Muscle bulk appears appropriate. He is somewhat hypertonic symmetrically in the lower extremities, but hypotonic in the upper extremities. He slips through on a vertical suspension test and sags on a horizontal suspension test. He is unable to sit unassisted for more than two or three seconds. His patellar reflexes are 2+ and symmetric, as are his Achilles reflexes. Toes are equivocal. There is no clonus. Bicipital tendon reflexes are 1+ and symmetric. There is no evidence for spasticity. He is able to lift his hands up to horizontal bilaterally. He does grasp onto objects placed in front of him. He is not observed to roll at this visit. He does seem to track. His face appears symmetric. He does protrude his tongue. He is moving all of his extremities symmetrically. IMAGING: We have report of a CT scan that was done in [place] but it is not available for our review at this time. This is described as multiple small calcifications scattered throughout both cerebral hemispheres and bilateral patchy decreased density of the white matter. IMPRESSION AND RECOMMENDATIONS: We do agree that the history, to include the microcephaly as well as the diffuse calcifications, is very consistent with a TORCH infection. My most likely thought at this point would be congenital cytomegalovirus. The description of the history is highly suggestive of a static insult to the brain and nothing that is progressive in nature or suggestive at all of metabolic disease. We would make the following recommendations for further diagnostic testin. Obtain urine for cytomegalovirus isolation. 2. Have an ophthalmologic evaluation for changes consistent with chorioretinitis which may be seen with cytomegalovirus. 3. Arrange for an electroencephalogram to delineate whether these staring spells may represent seizure activity. We have sent the urine and are obtaining an ophthalmologic exam today, 07/28/98. As the mother is staying in the area for the next several days we will attempt to coordinate an EEG at this same period of time. We do think that it is very unlikely that this is a progressive disorder and agree that his connection with Early Intervention or EST will be appropriate in following his developmental milestones and arranging for physical and occupational therapy as is indicated. As we receive results from the ophthalmologic testing and cytomegalovirus assays, we will contact Dr. Saucedo with the results. We would also like him to arrange for the previously performed CT scan to be sent for evaluation. At this time, pending that, there is no indication for further brain imaging. Osito Torres Jr., M.D. Resident, Pediatrics Fahad Pedraza M.D. PEB/scnicole cc: BRIANNE SAUCEDO MD [address] [place] [id number] 3 :13 AM PSTdocumented in this encounter Plan of Treatment Not on filedocumented as of this encounter Visit Diagnoses Not on filedocumented in this encounter"
--- OUTSIDE RECORDS SUMMARY | ~2018-09-18 | XMS | Encounter Summary ---
Demographics + + + | Address | [address] | | | [place] [address] | + + + | Home Phone | | + + + | Preferred Language | Unknown | + + + | Marital Status | Single | + + + | Voodoo Affiliation | NON | + + + [...] | | | | | [place] [address] | | + + + + + Care Team Providers + +------+ + | Care Flat Clothier Name | Role | Phone | + [...] as of this encounter Progress Notes Interface, Supervising Librarian In - 04/18/2006 3:13 AM [facility] [place] [facility] and [address] [address] or July 28, 1998 BRIANNE SAUCEDO MD [address] [place] [address] [place] [address] RE: AMOR PANDYA MR# [id number] Saucedo: Amor Pandya was seen in the Neurometabolic Clinic at [facility] on July 28, 1998. As you know, Amor is a vgx-znzd-kbq boy who is referred for evaluation of [...] for age. Impression: Amor Pandya is a llv-tsab-gef boy with a history of microcephaly, global [...] to call me. Sincerely, Kimani Lazaro M.D. Metal Fence Erector, Pediatrics Chief, Division of Pediatric Neurology TK/madeline C: 08/11/1998 ds A M PSTInterface, Supervising Librarian In - 04/18/2006 3:13 AM PST [address] [address] or [facility] , , Mail Code CE July 29, 1998 [facility] and [facility] RE: Amor Pandya MR# [id number] To Whom It May Concern: Amor Pandya was referred to see us here at the [facility]. The patient is a 60-ckfxt-kev boy with developmental delay. He apparently has [...] the patient's eye has been noted to jewel bearing turner occasionally, probably since , and seems to jewel bearing turner less than 25% of the time. [...] are not edematous. IMPRESSION: This is a sem-szhq-zjy boy with developmental delay. His eye exam is notable for an intermittent large angle exotropia. There are no retinal lesions noted and no amblyopia suspected. He is reportedly undergoing a work-up for intracerebral calcifications. We have asked the mother to seek follow-up here or in [place] in approximately 3 months time to follow [...]
--- OUTSIDE RECORDS SUMMARY | ~2018-09-18 | XMS | Encounter Summary ---
Demographics + + + | Address | [address] | | | [place] [address] | + + + | Home Phone | | + + + | Preferred Language | Unknown | + + + | Marital Status | Single | + + + | Restorationist Affiliation | NON | + + + | Race | White | + + + | Ethnic Group | Not or | + + + Author + + + | Author | [facility] | + + + | Organization | [facility] | + + + | Address | Unknown | + + + | Phone | Unavailable | + + + Support + + + + + | Name | Relationship | Address | Phone | + + + + + | Winter Pandya | ECON | [address] | | | | | [place] [address] | | + + + + + Care Team Providers + +------+ + | Care Gearman Name | Role | Phone | + +------+ + PCP | Unavailable | + +------+ + Encounter Details +--------+ + + + + | Date | Type | Department | Care Team | Description | +--------+ + + + + | 07/29/ | Procedure - | UNKNOWN DEPARTMENT | Other, Faculty | EEG | | 1998 | | [address] [facility] | [phone] | | | | Transcribed | [facility] | | | | | | [place], [place] | | | | | | [address] | | | +--------+ + + + [...] EEG ROUTINE CLINIC DATE: 07/29 [facility]: Dr. Pedraza Test Type: Routine [...] 07/29/1998 | | | | Care Unit: [facility]-Metabolic Req by: Dr. Pedraza | | [...]
--- OUTSIDE RECORDS SUMMARY | ~2018-09-18 | XMS | Encounter Summary ---
Demographics + + + | Address | [address] | | | [place] [address] | + + + | Home Phone | | + + + | Preferred Language | Unknown | + + + | Marital Status | Single | + + + | Spiritism Affiliation | NON | + + + | Race | White | + + + | Ethnic Group | Not or | + + + Author + + + | Author | [facility] | + + + | Organization | [facility] | + + + | Address | Unknown | + + + | Phone | Unavailable | + + + Support + + + + + | Name | Relationship | Address | Phone | + + + + + | Winter Pandya | ECON | [address] | | | | | [place] [address] | | + + + + + Care Team Providers + +------+ + | Care Agricultural Crop Farm Manager Name | Role | Phone | + +------+ + PCP | Unavailable | + +------+ + Encounter Details +--------+ + + + + | Date | Type | Department | Care Team | Description | +--------+ + + + + | 07/28/ | Results | Registration [id number] | | | | 1998 | Only | Kishor Cook | | | | | | [facility] Mailcode: | | | | | | [address] [place], [place] | | | | | | [address] | | | | | | [phone] | | | +--------+ + + + [...] | + +--------+ + + + | IMMUNOLOGY TESTS 6 | Routin | 07/28/1998 | | Results for this | | | e | 9:58 PM | | procedure are in the | | | | PDT | | results section. | + +--------+ + + + | MICROBIOLOGY TESTS 1 | Routin | 07/28/1998 | | Results for this | | | e | 9:58 PM | | procedure are in the | | | | PDT | | results section. | + +--------+ + + + documented in this encounter Results IMMUNOLOGY TESTS 6 (07/28/1998 9:58 PM PDT) + + + + + + | Component | Value | Ref Range | Performed | Pathologist | | | | | At | Signature | + + + + + + | [facility] | NEGATIVE | | | | | ASSIST | | | | | + + + + + + + + | Specimen | + + | | + + + + + + + | Performing | Address | City/State/Zipcode | Phone Number | | Organization | | | | + + + + + | [facility] | [address] | [place] [address] | | | PATHOLOGY | [address] | | | + + + + + MICROBIOLOGY TESTS 1 (07/28/1998 9:58 PM PDT) + + + + + + | Component | Value | Ref Range | Performed | Pathologist | | | | | At | Signature | + + + + + + | CULTURE | Test Ordered | | | | | RESULT | VIRAL CULTURE, | | | | | | CMVOrdering | | | | | | Loc REFSpec | | | | | | Set Up Date 07/28Spec | | | | | | Set Up Time | | | | | | 21:58Specimen | | | | | | Type URINERep | | | | | | ort | | | | | | Status FINALP | | | | | | relim | | | | | | Result NO | | | | | | VIRUS ISOLATED TO | | | | | | DATECulture | | | | | | Result NO VIRUS | | | | | | ISOLATEDDate Of Final | | | | | | Re [id number] | | | | + + + + + + + + | Specimen | + + | | + + + + + + + | Performing | Address | City/State/Zipcode | Phone Number | | Organization | | | | + + + + + | [facility] | [address] | [place] [address] | | | PATHOLOGY | [address] | | | + + + + + documented in this encounter Visit Diagnoses Not on filedocumented in this encounter"
--- OUTSIDE RECORDS SUMMARY | ~2018-09-18 | XMS | Encounter Summary ---
Demographics + + + | Address | [address] | | | [place] [address] | + + + | Home Phone | | + + + | Preferred Language | Unknown | + + + | Marital Status | Single | + + + | Sikh Affiliation | NON | + + + | Race | White | + + + | Ethnic Group | Not or | + + + Author + + + | Author | [facility] | + + + | Organization | [facility] | + + + | Address | Unknown | + + + | Phone | Unavailable | + + + Support + + + + + | Name | Relationship | Address | Phone | + + + + + | Winter Pandya | ECON | [address] | | | | | [place] [address] | | + + + + + Care Team Providers + +------+ + | Care Button Spindler Name | Role | Phone | + [...] as of this encounter Progress Notes Interface, Tea Plantation Worker In - 04/18/2006 3:13 AM PSTCLINIC DATE: 07/28/1998 [facility] CLINIC HISTORY OF PRESENT ILLNESS: This is a 3-year-old child referred by Dr. Brianne Saucedo in [place], [place] for concerns of hypotonia, developmental delay, and a recent CT scan revealing diffuse calcification. Stephanie's mother received care starting at five months in [place]. She reports having a chlamydial infection treated [...] age without complication, prior to moving to [place]. The mother does relate having several indoor [...] disorder. There have been no miscarriages nor psychometrist demise. The father's history is unknown. SOCIAL [...] a CT scan that was done in [place] but it is not available for our [...] Resident, Pediatrics Fahad Pedraza M.D. PEB/scnicole cc: BIRANNE SAUCEDO MD [address] [place] [phone] 3 :13 AM PSTdocumented in this encounter Plan of Treatment Not on filedocumented as of this encounter Visit Diagnoses Not on filedocumented in this encounter"
--- OUTSIDE RECORDS SUMMARY | ~2018-09-18 | XMS | Encounter Summary ---
Demographics + + + | Address | [address] | | | [place] [address] | + + + | Home Phone [...] Author + + + | Author | [facility] | + + + | Organization | [facility] | + + + | Address | Unknown | + + + | Phone | Unavailable | + + + Support + + + + + | Name | Relationship | Address | Phone | + + + + + | Winter Pandya | ECON | [address] | | | | | [place] [address] | | + + + + + Care Team Providers + +------+ + | Care Accountant Assistant Name | Role | Phone | + [...] as of this encounter Progress Notes Interface, Math Professor In - 04/18/2006 3:13 AM PSTCLINIC DATE: [...] for Nadia. Unfortunately, the aunt lives in [place] and the grandmother lives in [place]. Stephanie and his mother live in [place]. Nadia is a single parent. She is not in contact with Stephanie's father, although she is requesting parental support, and is in the state system being evaluated. It seems that there will have to be a paternity evaluation in this case. Stephanie is Nadia' first child. She is working full-time at the [employer]. When she is at work, Stephanie is at a baby-sitControlus. Nadia is very pleased with this baby-sitter [...] services. This includes home visitors from the [facility]), Sandra Walker and Perla Ovalle. They visit [...] reason for either a neurologist or a web operations specialist to be seeing him. Nadia seems [...]
--- OUTSIDE RECORDS SUMMARY | ~2018-09-18 | XMS | Encounter Summary ---
Demographics + + + | Address | [address] | | | [place] [address] | + + + | Home Phone | | + + + | Preferred Language | Unknown | + + + | Marital Status | Single | + + + | Quaker Affiliation | NON | + + + | Race | White | + + + | Ethnic Group | Not or | + + + Author + + + | Author | [facility] | + + + | Organization | [facility] | + + + | Address | Unknown | + + + | Phone | Unavailable | + + + Support + + + + + | Name | Relationship | Address | Phone | + + + + + | Winter Pandya | ECON | [address] | | | | | [place] [address] | | + + + + + Care Team Providers + +------+ + | Care Residential Case Manager Name | Role | Phone | [...] as of this encounter Progress Notes Interface, Visual Artist In - 01/07/2006 6:13 AM PDT CLINIC DATE: 06/01/2001 CLINIC NAME: [facility] DISCIPLINE: Social Work Stephanie is 5 years, 6 months of age, and he lives in [place] with his mother, Nadia Pandya. She is a single parent, and Stephanie is her only child. She does work, and she has much family support from grandparents, etc. 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 He has been enrolled in Early Intervention and is now in a preschool program. He receives PT and OT from the [facility]. He is making some nice progress. He also has had a seizure problem, and he is followed medically by Dr. Eunice Wilson, automotive sales representative. Eating had been a concern, but this [...]
--- OUTSIDE RECORDS SUMMARY | ~2018-09-18 | XMS | Encounter Summary ---
Demographics + + + | Address | [address] | | | [place] [address] | + + + | Home Phone | | + + + | Preferred Language | Unknown | + + + | Marital Status | Single | + + + | Jew Affiliation | NON | + + + [...] | | | | | [place] [address] | | + + + + + Care Team Providers + +------+ + | Care Wastewater Plant Operator Name | Role | Phone | [...] DEPARTMENT OF | [address] | [place] [address] | | | PATHOLOGY | [address] | | | + + + + + | [facility] | [address] [facility] | [place] [address] | | | PATHOLOGY | [address] [...] | | + +---------+ + + | [facility] DEPARTMENT OF | | | | | RADIOLOGY | | | | + +---------+ + + documented in this encounter Visit Diagnoses Not on filedocumented in this encounter"
--- OUTSIDE RECORDS SUMMARY | ~2018-09-18 | XMS | Encounter Summary ---
Demographics + + + | Address | [address] | | | [place] [address] | + + + | Home Phone | | + + + | Preferred Language | Unknown | + + + | Marital Status | Single | + + + | Congregation Affiliation | NON | + + + [...] | | | | | [place] [address] | | + + + + + Care Team Providers + +------+ + | Care Manufacturing Test Technician Name | Role | Phone | + +------+ + PCP | Unavailable | + +------+ + Encounter Details +--------+ + + + + | Date | Type | Department | Care Team | Description | +--------+ + + + + | 06/03/ | [facility] | | Letter, Clinic | Letters | | 2006 | scribed | | | | +--------+ [...] as of this encounter Progress Notes Interface, Balloon Dipper In - 06/06/2005 2:03 AM PST [id number] 06/03/2005 06/03/2005 [id number]A [facility] [address] [place] [address] or June 04, 2005 Al Saucedo M.D. [address] [place] [address] RE: AMOR PANDYA MR #: [id number] Dear Dr. Saucedo: Amor Pandya was seen for Neurologic followup in the Pediatric Neurology Clinic at [facility] on June 03, 2005. 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 He was last seen by me in January 2004, and at that time it was elected to clinically follow his seizures since he had only had 3 thus far. He was given a prescription for Diastat 5 mg rectal gel, and mother was told that should his seizures become more prominent then he may need to be placed on chronic anticonvulsant therapy. Since that last visit, Amor has actually done well. He has had 2 more seizures; one which occurred in December 2004, and the other either in January 2005 or February 2005. Both seizures were described as generalized major motor events lasting approximately 5 minutes or less. On neither event did the family administer Diastat since they did not have any at hand. They did say that they have been great trouble trying to locate and obtain Diastat in the [place] area. Other than these 2 further episodes, however, he has done well with no significant problems even suggestive of seizures. Amor's major problems have been his psychomotor retardation and cerebral palsy which is greater on his right side. He does have some bracing which he wears on his right arm. He is not easily ambulatory but will use a walker to some degree and will walk with assistance. The family is hoping to have him seen at [facility] where issues concerning his cerebral palsy can be addressed. He returns today for routine followup and maintenance of continuity in terms of his seizure management. Further review of systems is noncontributory. On physical examination, Amor is a disabled-appearing, small, nearly 10-year-old boy in no acute distress. His growth parameters disclose a height of 116 cm with a weight of 22 kg and a head circumference of 46 cm. He is afebrile with normal heart rate and respiratory rate. His systemic examination discloses a microcephalic young man who is ambulatory only with assistance. He has obvious psychomotor retardation. His notable findings are his microcephaly and cerebral palsy which is obviously worse on the right than the left. He has tight heel cords and difficult arm extension on the right. Cranial nerve testing discloses strabismus, but his pupils are equal, round, and reactive. His face is symmetric, although there is a tendency for his mouth to remain open. Motor examination discloses somewhat thin bulk with increased tone greater on the right than the left. There is spastic tone as well as dystonic posturing. His volitional movements are performed better on the left. Reflexes are brisk, again greater on the right than the left. His toes are extensor bilaterally. Amor Pandya is a nearly 10-year-old boy with a history of microcephaly, psychomotor retardation, spastic quadriplegia greater on the right than the left, and a mild seizure disorder. At this time, it appears that he has only had 5 seizures in his lifetime; 2 occurring in the fall of 2004 and the previous events in 2003. At this time, the family is not particularly motivated to place him on daily medication. They are content with continuing to clinically observe him. I believe this is a reasonable approach given the fact that he has had only a few seizures all lasting less than 3 minutes. The family does, however, need Diastat rectal gel, and today I gave them 2 syringes of 15 mg Diastat rectal gel and instructed them to administer approximately 10 mg after seizures lasting greater than 3 to 5 minutes. I did not give them a prescription since they felt that it would be difficult to fill that in [place], and more likely these two syringes should last for at least the next 6 months. On his next routine clinical visit with you, you could may be further explore their difficulty in trying to obtain Diastat. If he does begin to have more seizures, I do believe he will need to be placed on daily medication. If he remains stable, I would like to re-evaluate him in 1 year. For his cerebral palsy, he will be evaluated through [facility]. Thank you for allowing me to participate in the care of this young man. If I may be of any further assistance, please do not hesitate to contact me. Sincerely, Kimani Lazaro M.D. Chief, Division of Pediatric Neurology Professor, Pediatrics and Neurology SHANDRA / JAMEL [id number] / [id number] / [id number] / documented i n this encounter Plan of Treatment Not on filedocumented as of this encounter Visit Diagnoses Not on filedocumented in this encounter"
--- OUTSIDE RECORDS SUMMARY | ~2018-09-18 | XMS | Encounter Summary ---
Demographics + + + | Address | [address] | | | [place] [address] | + + + | Home Phone | | + + + | Preferred Language | Unknown | + + + | Marital Status | Single | + + + | Evangelical Affiliation | NON | + + + | Race | White | + + + | Ethnic Group | Not or | + + + Author + + + | Author | [facility] | + + + | Organization | [facility] | + + + | Address | Unknown | + + + | Phone | Unavailable | + + + Support + + + + + | Name | Relationship | Address | Phone | + + + + + | Winter Pandya | ECON | [address] | | | | | [place] [address] | | + + + + + Care Team Providers + +------+ + | Care Senior Qc Technician Name | Role | Phone | [...] Cook | | | | | | [facility] Mailcode: | | | | | | [address] [place], [place] | | | | | | [address] | | | | | | [phone] | | | +--------+ + + + [...] | + + + + + | [facility] | [address] | [place] [address] | | | PATHOLOGY | [address] [...] | | | | | | [place] [address] | | | | + + + + + + + + | Specimen | + + | | + + + + + + + | Performing | Address | City/State/Zipcode | Phone Number | | Organization | | | | + + + + + | [facility] | [address] | [place] [address] | | | PATHOLOGY | [address] | | | + + + + + documented in this encounter Visit Diagnoses Not on filedocumented in this encounter"
--- OUTSIDE RECORDS SUMMARY | ~2018-09-18 | XMS | Encounter Summary ---
Demographics + + + | Address | [address] | | | [place] [address] | + + + | Home Phone | | + + + | Preferred Language | Unknown | + + + | Marital Status | Single | + + + | Denominational Affiliation | NON | + + + [...] | | | | | [place] [address] | | + + + + + Care Team Providers + +------+ + | Care Lending Advisor Name | Role | Phone | + +------+ + PCP | Unavailable | + +------+ + Encounter Details +--------+ + + + + | Date | Type | Department | Care Team | Description | +--------+ + + + + | 10/05/ | Results | | Other, Faculty | | | 2000 | Only | | [phone] | | +--------+ + + + + [...] | | | | | | HISTORY: [id number] | | | | | | patient [...] prior | | | | | | [facility] | | | | | | [place] | | | | [facility] [...] | | | | (Omniscan 2 mL) [id number] | | | | | | and [...] DEPARTMENT OF | [address] | [place], [place] [address] | | | PATHOLOGY | [address] | | | + + + + + | [facility] | [address] | [place] [address] | | | PATHOLOGY | [address] | | | + + + + + documented in this encounter Visit Diagnoses Not on filedocumented in this encounter"
--- OUTSIDE RECORDS SUMMARY | ~2018-09-18 | XMS | Encounter Summary ---
Demographics + + + | Address | [address] | | | [place] [address] | + + + | Home Phone | | + + + | Preferred Language | Unknown | + + + | Marital Status | Single | + + + | Zoroastrianism Affiliation | NON | + + + | Race | White | + + + | Ethnic Group | Not or | + + + Author + + + | Author | [facility] | + + + | Organization | [facility] | + + + | Address | Unknown | + + + | Phone | Unavailable | + + + Support + + + + + | Name | Relationship | Address | Phone | + + + + + | Winter Pandya | ECON | [address] | | | | | [place] [address] | | + + + + + Care Team Providers + +------+ + | Care Pickling Machine Operator Name | Role | Phone [...] as of this encounter Progress Notes Interface, Singing Teacher In - 11/21/2004 10:56 PM PDTClinic Date: 06/27/2003 CLINIC: [facility] CONNECTIONS DISCIPLINE: ORTHOPEDICS Stephanie is [...] [address] [place] [address] Lary Farrell, Director [facility] [address] [place] [id number] signed by Interface, Singing Teacher In at 11/21/2004 10:56 PM PDTdocumented in this encounter Plan of Treatment Not on filedocumented as of this encounter Visit Diagnoses Not on filedocumented in this encounter"
--- OUTSIDE RECORDS SUMMARY | ~2018-09-18 | XMS | Encounter Summary ---
Demographics + + + | Address | [address] | | | [place] [address] | + + + | Home Phone | | + + + | Preferred Language | Unknown | + + + | Marital Status | Single | + + + | Taoism Affiliation | NON | + + + [...] | | | | | [place] [address] | | + + + + + Care Team Providers + +------+ + | Care Fur Tailor Name | Role | Phone | + [...] as of this encounter Progress Notes Interface, Air Conditioning Unit Tester In - 04/10/2006 5:04 AM [facility] [place] [address] [place], [place] [address] or October 24, 1998 ROXY KNOWLES MD PEDIATRIC NEUROLOGY [address] [place] [address] [place] [address] RE: Stephanie Pandya MR#: [id number] [...] BRIANNE SAUCEDO MD [address] [place] [address] BRIANNE SAUCEDO MD [address] [place] [address]1 [id number] signed by Interface, Air Conditioning Unit Tester In at 04/10/2006 5:04 AM PSTdocume nted in this encounter Plan of Treatment Not on filedocumented as of this encounter Visit Diagnoses Not on filedocumented in this encounter"
--- OUTSIDE RECORDS SUMMARY | ~2018-09-18 | XMS | Encounter Summary ---
Demographics + + + | Address | [address] | | | [place] [address] | + + + | Home Phone [...] + + + | Author | [facility] | + + + | Organization | [facility] | + + + | Address | Unknown | + + + | Phone | Unavailable | + + + Support + + + + + | Name | Relationship | Address | Phone | + + + + + | Winter Pandya | ECON | [address] | | | | | [place] [address] | | + + + + + Care Team Providers + +------+ + | Care Plastic Products Sales Representative Name | Role | Phone | + +------+ + PCP | Unavailable | + +------+ + Encounter Details +--------+ + + + + | Date | Type | Department | Care Team | Description | +--------+ + + + + | 10/05/ | Results | Pediatric | Kimani Lazaro MD | | | 1999 | Only | Neurology at | | | | | | [place] | | | | | | [facility] | | | | | | [address] | | | | | | [facility] | | | | | | Mailcode: DCH7 | | | | | | [place] | | | | | | [place], [place] | | | | | | [address] | | | | | | [phone] | | | +--------+ + + + [...] | + +--------+ + + + | SEDATION IN MRI | Routin | 10/06/1999 | | Results for this | | | e | 4:45 PM | | procedure are in the | | | | PDT | | results section. | + +--------+ + + + documented in this encounter Results SEDATION IN MRI (10/06/1999 4:45 PM PDT) + + + + + + | Component | Value | Ref Range | Performed | Pathologist | | | | | At | Signature | + + + + + + | SEDATION | Radiologist 1: ALTHEA, | | | | | | IVÁN | | | | | | Be-Radiologist 2: | | | | | | EDITH GODOY, | | | | | | R.N.Date: | | | | | | 10/06/99 Department: | | | | | | MRI Procedure/study: | | | | | | BRAIN WITH | | | | | | CONTRASTDiagnosis: | | | | | | SEIZURE ASA Class: III | | | | | | Weight: 10 KG Age: 4 | | | | | | YRS Allergies: NKDA | | | | | | Medications: PHENOBARB | | | | | | Baseline Vital Signs: HR | | | | | | RR BP SaO2 Meets NPO | | | | | | guidelines: YES Consent | | | | | | for sedation obtained? | | | | | | YES From: MOTHER | | | | | | Meets Assessment | | | | | | Standards For: | | | | | | Resp Cardiac Neuro | | | | | | Renal/Liver Se | | | | | | dation HxVariance: | | | | | | NEURO= MICROCEPHALY, | | | | | | DEVELOPMENTAL DELAY. | | | | | | RIGHT SIDEDWEAKNESS, NEW | | | | | | ONSET SEIZURE BEHAVIOR. | | | | | | Sedation equipment per | | | | | | Sedation Service | | | | | | Protocols andStandards | | | | | | of Care: YES Intravenous | | | | | | Access: IV IN PLACE | | | | | | Physician Orders: VERSED | | | | | | 0.5 MG IV, FOLLOW WITH | | | | | | NEMBUTAL 2-6 MG/KG | | | | | | IV;TITRATE TO ACHIEVE | | | | | | DEEP SEDATION. PROPOFOL | | | | | | PER DR. OH. | | | | | | Medications | | | | | | Given:Time | | | | | | Medication | | | | | | Dose Route | | | | | | [id number] | | | | | | NEMBUTAL 20 | | | | | | MG IV PMD1 | | | | | | 544 | | | | | | PROPOFOL 50 | | | | | | MG IV AK15 | | | | | | 49 | | | | | | VERSED 0.5 | | | | | | MG IV PMD1 | | | | | | 625 | | | | | | VERSED 0.5 | | | | | | MG IV PMD | | | | | | Contrast: GADOLINIUM AT | | | | | | 1625 Procedure Summary: | | | | | | PATIENT TOLERATED | | | | | | SEDATION FOR MRI BUT | | | | | | REQUIRED 4.0ETT PLACED | | | | | | NASAL AIRWAY DUE TO | | | | | | INITIAL AIRWAY | | | | | | OBSTRUCTION (NOTRELIEVED | | | | | | WITH ORAL | | | | | | AIRWAY). TOLERATED | | | | | | WELL, VITAL SIGNS | | | | | | NORMALTHROUGHOUT | | | | | | EXAM. AWAKE | | | | | | IMMEDIATELY WHEN MRI | | | | | | COMPLETED, AIRWAY | | | | | | REMOVEDAND MOUTH AND | | | | | | THROAT | | | | | | SUCTIONED. UNEVENTFUL | | | | | | RECOVERY PERIOD. | | | | | | Discharge: Time: | | | | | | 1645Inpatient: | | | | | | Transferred and | | | | | | transported back to: | | | | | | 9NComments: ESCORTED TO | | | | | | 9N BY DR. OH. | | | | | | IMPRESSION: | | | | | | ASA-III THE PATIENT | | | | | | TOLERATED DEEP SEDATION | | | | | | WITHOUT INCIDENT. END | | | | | | OF IMPRESSION: | | | | + + + + + + + + | Specimen | + + | | + + + +---------+ + + | Performing | Address | City/State/Zipcode | Phone Number | | Organization | | | | + +---------+ + + | [facility] DEPARTMENT OF | | | | | RADIOLOGY | | | | + +---------+ + + documented in this encounter Visit Diagnoses Not on filedocumented in this encounter"
--- OUTSIDE RECORDS SUMMARY | ~2018-09-18 | XMS | Encounter Summary ---
Demographics + + + | Address | [address] | | | [place] [address] | + + + | Home Phone | | + + + | Preferred Language | Unknown | + + + | Marital Status | Single | + + + | Episcopal Affiliation | NON | + + + [...] | | | | | [place] [address] | | + + + + + Care Team Providers + +------+ + | Care Gravity Prospecting Supervisor Name | Role | Phone | + +------+ + PCP | Unavailable | + +------+ + Encounter Details +--------+ + + + + | Date | Type | Department | Care Team | Description | +--------+ + + + + | 10/05/ | Discharge | | Summary, Discharge | D/C Summary ODDS | | 2000 | Summary-Tra | | | | | | nscribed | | | | +--------+ + + [...] + + documented as of this encounter Discharge Summaries Interface, Health Information Technologist In - 03/13/2006 1:[address] [address] [facility] MEDICAL SUMMARY OF HOSPITALIZATION Med Rec No: [id number] Admission Date: 10/04/1999 Name: Stephanie Pandya Discharge Date: 10/06/1999 STAFF PHYSICIAN: Kimani Lazaro M.D. PRINCIPAL FINAL DIAGNOSIS:New onset seizures. ADDITIONAL DIAGNOSES: 1. Cerebral palsy. 2. Developmental delay. 3. 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 PRINCIPAL PROCEDURE: Observation. ADDITIONAL PROCEDURES: 1. Magnetic resonance imaging (MRI) of brain. 2. Rule out sepsis. 3. Electroencephalogram (EEG). REASON FOR ADMISSION: The patient is a 4-year-old male with history of cerebral palsy and developmental delay who developed upper respiratory tract symptoms, fever, and right-sided seizures. HOSPITAL COURSE: This required Ativan and phenobarbital. He was subsequently intubated due to respiratory depression. The illness was likely viral. There were no seizures noted in the Pediatric Intensive Care Unit. Magnetic resonance imaging (MRI) performed on October 06, 1999 demonstrated findings consistent with CMV (please see specific report for details). It should also be noted that EEG demonstrated diffuse slowing in the right frontal lobe without seizure activity. CONDITION ON DISCHARGE: Stable. DISCHARGE MEDICATION(S): 1. Phenobarbital 20 mg p.o. b.i.d. 2. Tylenol 150 mg p.o. or p.r. q. 4 h. p.r.n. fever. DISCHARGE INSTRUCTION(S): ACTIVITY: Normal. DIET: Resume previous. FOLLOWUP: Dr. Saucedo at Pediatric Clinic in [place] in less than one week. Appointment to be arranged by the patient's mother. FOLLOWUP: Neurology as determined by the patient's primary care physician. Chuck Park M.D. Kimani Lazaro M.D. BCC/ws2 P [id number] Fax the MRI scan results on 10/06/1999 to the following clinic in addition to copy of this dictation: Dr. Saucedo, Pediatric Clinic, [facility]. cc: documente d in this encounter Plan of Treatment Not on filedocumented as of this encounter Visit Diagnoses Not on filedocumented in this encounter"
--- OUTSIDE RECORDS SUMMARY | ~2018-09-18 | XMS | Encounter Summary ---
Demographics + + + | Address | [address] | | | [place] [address] | + + + | Home Phone | | + + + | Preferred Language | Unknown | + + + | Marital Status | Single | + + + | Mandaen Affiliation | NON | + + + | Race | White | + + + | Ethnic Group | Not or | + + + Author + + + | Author | [facility] | + + + | Organization | [facility] | + + + | Address | Unknown | + + + | Phone | Unavailable | + + + Support + + + + + | Name | Relationship | Address | Phone | + + + + + | Winter Pandya | ECON | [address] | | | | | [place] [address] | | + + + + + Care Team Providers + +------+ + | Care Field Ironworker Name | Role | Phone | + [...] as of this encounter Progress Notes Interface, Maintenance Data Analyst In - 01/04/2006 3:01 AM PDTCLINIC DATE: [...] evidence of recurrence. The patient moved to [place] within the past couple of weeks. Prior [...] was seen by Dr.Eugene Monge at the [facility] at the time of his initial evaluation [...] drinks a week. He recently moved to [place] with his . 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 They have 2 grown kids, both of them live in [place]. REVIEW OF SYSTEMS: Review of system is [...] from Dr. Smith's office and from the [facility] and hope we will be able to [...] M.D. Chu Hernandez M.D. SSD / HS [id number] / [id number] / [id number] / [id number] C: 07/06/2001 cc: Dougie Smith M.D. [address] [place] [address] #LL-C [place] [id number] [id number] signed by Interface, Maintenance Data Analyst In at 01/04/2006 3:01 AM PDTdoc umented in this encounter Plan of Treatment Not on filedocumented as of this encounter Visit Diagnoses Not on filedocumented in this encounter
--- OUTSIDE RECORDS SUMMARY | ~2018-09-18 | XMS | Encounter Summary ---
Demographics + + + | Address | [address] | | | [place] [address] | + + + | Home Phone | | + + + | Preferred Language | Unknown | + + + | Marital Status | Single | + + + | Buddhism Affiliation | NON | + + + | Race | White | + + + | Ethnic Group | Not or | + + + Author + + + | Author | [facility] | + + + | Organization | [facility] | + + + | Address | Unknown | + + + | Phone | Unavailable | + + + Support + + + + + | Name | Relationship | Address | Phone | + + + + + | Winter Pandya | ECON | [address] | | | | | [place] [address] | | + + + + + Care Team Providers + +------+ + | Care Loss Mitigation Specialist Name | Role | Phone | + [...] | | | | | | [facility] | | | | | | [address] | | | | | | [facility] | | | | | | Mailcode: [address]CH7 | | | | | | [place] | | | | | | [place], [place] | | | | | | [address] | | | | | | [phone] | | | +--------+ + + + [...] Route | | | | | | [id number] | | | | | | NEMBUTAL [...] | | + +---------+ + + | [facility] DEPARTMENT OF | | | | | RADIOLOGY | | | | + +---------+ + + documented in this encounter Visit Diagnoses Not on filedocumented in this encounter"
--- OUTSIDE RECORDS SUMMARY | ~2018-09-18 | XMS | Encounter Summary ---
Demographics + + + | Address | [address] | | | [place] [address] | + + + | Home Phone [...] | | | | | [place] [address] | | + + + + + Care Team Providers + +------+ + | Care Satin Finisher Name | Role | Phone | + [...] as of this encounter Discharge Summaries Interface, Sales And Service Advisor In - 03/13/2006 1:[address] [address] [facility] MEDICAL SUMMARY OF HOSPITALIZATION Med Rec No: [...] FOLLOWUP: Dr. Saucedo at Pediatric Clinic in [place] in less than one week. Appointment to be arranged by the patient's mother. FOLLOWUP: Neurology as determined by the patient's primary care physician. Chuck Park M.D. Kimani Lazaro M.D. BCC/ws2 P [id number] Fax the MRI scan results on 10/06/1999 to the following clinic in addition to copy of this dictation: Dr. Saucedo, Pediatric Clinic, [facility]. cc: documente d in this encounter Plan of Treatment Not on filedocumented as of this encounter Visit Diagnoses Not on filedocumented in this encounter"
--- OUTSIDE RECORDS SUMMARY | ~2018-09-18 | XMS | Encounter Summary ---
Demographics + + + | Address | [address] | | | [place] [address] | + + + | Home Phone | | + + + | Preferred Language | Unknown | + + + | Marital Status | Single | + + + | Advent Affiliation | NON | + + + [...] | | | | | [place] [address] | | + + + + + Care Team Providers + +------+ + | Care Poly Operator Name | Role | Phone | [...] as of this encounter Progress Notes Interface, Area Field Worker In - 06/06/2005 2:03 AM PST [id number] 06/03/2005 06/03/2005 [id number] CHEVY CHINCHILLA [facility] [address] [place] [address] or June 04, 2005 Al Saucedo M.D. [address] [place] [address] RE: AMOR PANDYA MR #: [id number] Dear Dr. Saucedo: Amor Pandya was seen for Neurologic followup in the Pediatric Neurology Clinic at [facility] on June 03, 2005. As you know, [...] to locate and obtain Diastat in the [place] area. Other than these 2 further episodes, [...] is hoping to have him seen at [facility] where issues concerning his cerebral [...] cerebral palsy, he will be evaluated through [facility]. Thank you for allowing me to participate in the care of this young man. If I may be of any further assistance, please do not hesitate to contact me. Sincerely, Kimani Lazaro M.D. Chief, Division of Pediatric Neurology Professor, Pediatrics and Neurology SHANDRA / JAMEL [id number] / [id number] / [id number] / documented i n this encounter Plan of Treatment Not on filedocumented as of this encounter Visit Diagnoses Not on filedocumented in this encounter"
--- OUTSIDE RECORDS SUMMARY | ~2018-09-18 | XMS | Encounter Summary ---
Demographics + + + | Address | [address] | | | [place] [address] | + + + | Home Phone | | + + + | Preferred Language | Unknown | + + + | Marital Status | Single | + + + | Hindu Affiliation | NON | + + + | Race | White | + + + | Ethnic Group | Not or | + + + Author + + + | Author | [facility] | + + + | Organization | [facility] | + + + | Address | Unknown | + + + | Phone | Unavailable | + + + Support + + + + + | Name | Relationship | Address | Phone | + + + + + | Winter Pandya | ECON | [address] | | | | | [place] [address] | | + + + + + Care Team Providers + +------+ + | Care Tile Applicator Name | Role | Phone | + [...] as of this encounter Progress Notes Interface, Dependency Director In - 03/23/2006 3:02 AM PSTCLINIC DATE: 05/28/1999 CLINIC NAME: [facility] DISCIPLINE: SOCIAL WORK Stephanie was brought to the clinic today by his mother, Nadia Pandya, and also the paternal stepmother. Stephanie is 22 months old and the family live in [place], [place]. Mother is a single parent. Stephanie has been diagnosed with microcephaly, hypotonia, and developmental delay. 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 Stephanie has been followed by several programs at the [facility] including the [facility], Pediatric Neurology, and the [facility]. His primary care physician in [place] is Dr. Al Saucedo. Stephanie is the only child born to this young mother. She says Stephanie has no contact with his father at this time. She works full-time at [employer] and works days. She has a early childhood education worker provider when she is at work, and she does receive assistance from Social Security. She has an open medical card for Stephanie. She also receives a good deal of support from her father and stepmother, who live in [place], and also from her mother, who lives in [place]. Stephanie is receiving a full therapy program [...] receiving services, both locally and through the [facility]. She also has good support systems in the community, and she has a community case manager also working with her on locating resources. We will continue to follow Stephanie in our clinic in [place]. Minerva Subramanian L.C.S.W. Water Treatment Plant Operator EM/[id number] P STdocumented in this encounter Plan of Treatment Not on filedocumented as of this encounter Visit Diagnoses Not on filedocumented in this encounter"
--- OUTSIDE RECORDS SUMMARY | ~2018-09-18 | XMS | Clinical Summary ---
Demographics + + + | Address | [address] | | | [place] [address] | + + + | Home Phone | | + + + | Preferred Language | Unknown | + + + | Marital Status | Single | + + + | Pentecostalism Affiliation | NON | + + + [...] | | | | | [place] [address] | | + + + + + Care Team Providers + +------+ + | Care Bowl Topper Name | Role | Phone | + +------+ + PP | Unavailable | + +------+ + Source Comments MEGHA is fully live on both [facility] and [facility] Allergies Not on File Medications Not on [...]
--- OUTSIDE RECORDS SUMMARY | ~2018-09-18 | XMS | Encounter Summary ---
Demographics + + + | Address | [address] | | | [place] [address] | + + + | Home Phone | | + + + | Preferred Language | Unknown | + + + | Marital Status | Single | + + + | Jewish Affiliation | NON | + + + [...] | | | | | [place] [address] | | + + + + + Care Team Providers + +------+ + | Care Vice President Of Software Development Name | Role | Phone | + [...] as of this encounter Progress Notes Interface, Stud Driver In - 11/22/2004 9:03 AM PDT [id number] 02/20/2004 02/20/2004 [id number] CHEVY CHINCHILLA [facility] [address] [place] [address] or February 24, 2004 Елена Najera M.D. [address] [place] [address] RE: AMOR PANDYA MR #: [id number] Dear Dr. Najera: Amor Pandya was seen for neurologic evaluation in the Pediatric Neurology Clinic at [facility] on February 20, 2004. As you know, [...] in hospitalization and evaluation reportedly here at [facility]. A second seizure occurred at age [...] Professor, Pediatrics and Neurology SHANDRA / JAMEL [id number] / [id number] / [id number] / documented i n this encounter Plan of Treatment Not on filedocumented as of this encounter Visit Diagnoses Not on filedocumented in this encounter"
[~2018-09-18 14:55] MED LIST: ATIVAN1 MG PO; STOOL SOFTENER100 MG PO
[2018-09-18] MEDS ORDERED: OLANZAPINE5 MG PO (15:30)
[2018-09-18] MEDS ORDERED: ENULOSE10 GM/15 M PO (18:06)
== END 2018-09-18 18:48 | disposition home or self-care (01) ==
LOC: ED 14:55
DX: K59.09 Other constipation (principal); N39.490 Overflow incontinence; Z79.899 Other long term (current) drug therapy
CPT/HCPCS: 36415; 74177; 80053; 81001; 83605; 83690; 85025; 99284-25; J2405; J7030; Q9967

== ENCOUNTER 2021-07-06 14:45 | Emergency (ER) | payer OTHER ==
[~2021-07-06] VITALS: Ht 165.1 cm; Wt 77.1 kg
[~2021-07-06 14:45] MED LIST changes: +ENULOSE10 GM/15 M PO; +OLANZAPINE5 MG PO
[2021-07-06] MEDS ORDERED: ARIPIPRAZOLE2 MG PO (15:34)
[2021-07-06] MEDS ORDERED: ARIPIPRAZOLE5 MG PO (15:35)
[2021-07-06] MEDS ORDERED: CEPHALEXIN500 M1 PO (17:44)
[2021-07-06] MEDS ORDERED: ONDANSETRON ODT8 MG PO (17:47)
== END 2021-07-06 18:50 | disposition home or self-care (01) ==
LOC: ED 14:45
DX: N39.0 Urinary tract infection, site not specified (principal); E86.0 Dehydration; J10.1 Influenza due to other identified influenza virus with other respiratory manifestations; G40.909 Epilepsy, unspecified, not intractable, without status epilepticus; Z20.822 Contact with and (suspected) exposure to COVID-19
CPT/HCPCS: 36415; 71045; 80053; 81001; 85025; 96374; 96375; 99284-25; C9803; J0696; J2405; J7030; U0003

== ENCOUNTER 2021-12-26 23:14 | Emergency (ER) | payer OTHER ==
[~2021-12-26] VITALS: Ht 165.1 cm; Wt 77.1 kg
[~2021-12-26 23:14] MED LIST changes: +ARIPIPRAZOLE2 MG PO; +ARIPIPRAZOLE5 MG PO; +CEPHALEXIN500 M1 PO; +ONDANSETRON ODT8 MG PO
[2021-12-27] MEDS ORDERED: MACROBID 100 M100 MG PO (00:07)
== END 2021-12-27 00:18 | disposition home or self-care (01) ==
LOC: ED 23:14
DX: N39.0 Urinary tract infection, site not specified (principal)
CPT/HCPCS: 81001; 99283

== ENCOUNTER 2025-03-31 04:16 | Emergency (ER) | payer OTHER ==
[~2025-03-31] VITALS: Ht 165.1 cm; Wt 75.0 kg
[~2025-03-31 04:16] MED LIST changes: +MACROBID 100 M100 MG PO
[2025-03-31] MEDS ORDERED: KRISTALOSE10 GM PO (05:03)
[2025-03-31] MEDS ORDERED: MAGNESIUM CITRATE 300 ML BTL PO ONE (05:15)
[2025-03-31 05:16] VITALS: BP 128/78
== END 2025-03-31 05:17 | disposition home or self-care (01) ==
LOC: ED 04:16
DX: K59.00 Constipation, unspecified (principal)
CPT/HCPCS: 74018; 99283